=== PATIENT | male | born 1965 | race Caucasian/White ===

== ENCOUNTER 2022-10-06 18:01 | Inpatient (IN) ==
[2022-10-06] MEDS ORDERED: CEROVITE ADV FORMULA TAB PO STA (18:27)
[2022-10-06] MEDS ORDERED: THIAMINE HCL 100 MG, FOLIC ACID 1 MG in SODIUM CHLORIDE 0.9% 1000ML 1,000 ML IV STA (18:27)
--- NOTE | 2022-10-06 18:27 | Emergency Department Note ---
Impression & Plan Alcohol withdrawal syndrome, ETOH abuse, Alcoholic hepatitis, Pancytopenia ED Provider Note NAME: SHAZIA MARIE AGE: 56 SEX: M : 1965 ARRIVES VIA: Walk-In INFORMANT: Patient, ED PROVIDER(S): Len Crow MD CHIEF COMPLAINT: Alcohol intoxication, rehab MEDICAL DECISION MAKING: Patient presents secondary to alcohol intoxication and inability to go to rehab today due to concern for likely elevated blood alcohol level. IV was established and blood work is obtained. The patient was ordered IV Zofran and fluids. Alcohol obtained. Patient blood work does show an anion gap low bicarb and associated elevated alcohol just under 400. Given these concerns with associated vomiting I did speak with the on-call hospital service Dr. Agrawal and the patient was admitted to the medicine service. CIWA protocol was initiated. The patient was also ordered D5 half. The patient did require small amount of supplemental nasal cannula oxygen likely secondary to Ativan administration. Critical Care: I have personally spent 35 minutes of critical care time in direct management of this patient. This includes bedside care, interpretation of diagnostic studies, and testing, discussion with consultants, patient, and family members, and other require inpatient management activities. This 35 minutes is in excess of all separately billable procedures. Prior /Outside records reviewed: None Differential diagnosis: Alcohol intoxication, toxicologic, infection, hypoglycemia, electrolyte abnormalities, dehydration, transaminitis, hepatitis among others were considered Diagnostics, as interpreted by me: ECG: None Cardiac monitoring: An order was placed for continuous cardiac monitoring. The monitor shows a rate of 102 with tachycardic and regular rhythm. Patient was placed on pulse oximetry Medical decision rules: CIWA score Imaging studies: See below HPI: Patient presents due to concern for alcohol intoxication. The patient states that he is struggled with alcohol intoxication for many years and currently has been an alcoholic for the last several months after period of sobriety for several weeks. The patient denies any chest pains or shortness of breath and has no abdominal pain he does admit to drinking a pint of vodka which she drank through the light and finished this morning. He did try to go to [facility] but they referred him here as he was too intoxicated to be taken for inpatient treatment at their facility at this time. The patient denies any concomitant drug use. He does not have any abdominal pain but just has a nausea. He has had associated vomiting PAST MEDICAL HISTORY: See Below PAST SURGICAL HISTORY: See Below SOCIAL HISTORY: See Below HOME MEDICATIONS: See Below ALLERGIES: See Below VITALS: See Below PHYSICAL EXAMINATION: GENERAL: Clinically intoxicated but no apparent distress. Laying prone. EYE EXAM: Normal conjunctiva. PERRL, no anisocoria and EOM's grossly intact w/o pain. OROPHARYNX: Moist mucus membranes, grossly normal dentition. NECK: Supple, no nuchal rigidity, no adenopathy, non-tender. No signs of meningismus. FROM of the neck with good chin to chest and neck extension. No stridor. LUNGS: Clear to auscultation. Normal chest wall mechanics. HEART: Tachycardic and regular, no MRG. ABDOMEN: Abdomen soft, non-tender, no masses, no rebound or guarding. BACK: No CVA TTP. SKIN: No rashes and no bruising. UPPER EXTREMITIES: Upper extremities are grossly normal. LOWER EXTREMITIES: Grossly normal, no edema. NEURO EXAM: A&O x3, cranial nerves II-XII grossly intact, normal speech, moves all 4 extremities. 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 Beliefs That Will Affect Care: None Current Living Situation: Significant Other Other Information That Helps Us Care for You: No Feels Safe at Home: Yes Safety Concerns: Feels Safe At This Time Assistive Devices: None Allergies Allergies Allergy/AdvReac Type Severity Reaction Status Date / Time No Known Allergies Allergy Verified 10/06/22 23:31 Home Meds Home Medications Medication Instructions Recorded Confirmed folic acid 1 mg tablet 0 mg PO DAILY 10/06/22 10/06/22 lisinopril 2.5 mg tablet 0 mg PO DAILY 10/06/22 10/06/22 metoprolol succinate 25 mg 0 mg PO DAILY 10/06/22 10/06/22 tablet,extended release 24 hr multivitamin 1 tab PO DAILY 10/06/22 10/06/22 Results & Data (ED) Vital Signs Vital Signs - 24 hr 10/06/22 18:13 10/06/22 18:37 10/06/22 18:48 Temperature 36.6 C Temperature Source Temporal Artery Scan Pulse Rate 116 H 109 H Pulse Rate [Apical] Pulse Rate from SpO2 Sensor Respiratory Rate 20 Respiratory Effort / Characteristics Respiratory Depth Blood Pressure 136/91 Blood Pressure [Right Arm] Blood Pressure Mean 106 Blood Pressure Mean [Right Arm] Pulse Oximetry 94 95 Oxygen Delivery Method Room Air Room Air Oxygen Flow Rate Sepsis Recent Fever Within 48 Hours No Sepsis New/Unexplained Change in Mental Status N/A Sepsis Action Taken by Nursing No Action Required Oxygen Flow Rate - Titration Pulse Oximetry Post Tiitration 10/06/22 19:27 10/06/22 18:38 10/06/22 18:40 Temperature 36.9 C Temperature Source Oral Pulse Rate 112 H 108 H Pulse Rate [Apical] 105 H Pulse Rate from SpO2 Sensor 111 H 107 H Respiratory Rate 14 Respiratory Effort / Characteristics Non-Labored Spontaneous Respiratory Depth Normal Blood Pressure Blood Pressure [Right Arm] 136/91 Blood Pressure Mean Blood Pressure Mean [Right Arm] 106 Pulse Oximetry 96 91 93 Oxygen Delivery Method Room Air Oxygen Flow Rate Sepsis Recent Fever Within 48 Hours Sepsis New/Unexplained Change in Mental Status Sepsis Action Taken by Nursing Oxygen Flow Rate - Titration Pulse Oximetry Post Tiitration 10/06/22 18:50 10/06/22 18:59 10/06/22 19:21 Temperature Temperature Source Pulse Rate 95 H Pulse Rate [Apical] Pulse Rate from SpO2 Sensor 95 H 107 H 100 H Respiratory Rate Respiratory Effort / Characteristics Respiratory Depth Blood Pressure 136/91 Blood Pressure [Right Arm] Blood Pressure Mean 106 Blood Pressure Mean [Right Arm] Pulse Oximetry 93 90 96 Oxygen Delivery Method Oxygen Flow Rate Sepsis Recent Fever Within 48 Hours Sepsis New/Unexplained Change in Mental Status Sepsis Action Taken by Nursing Oxygen Flow Rate - Titration Pulse Oximetry Post Tiitration 10/06/22 19:29 10/06/22 19:30 10/06/22 19:40 Temperature Temperature Source Pulse Rate 104 H 97 H 106 H Pulse Rate [Apical] Pulse Rate from SpO2 Sensor 103 H 100 H 106 H Respiratory Rate 14 15 17 Respiratory Effort / Characteristics Respiratory Depth Blood Pressure 126/100 Blood Pressure [Right Arm] Blood Pressure Mean 108 Blood Pressure Mean [Right Arm] Pulse Oximetry 96 95 91 Oxygen Delivery Method Oxygen Flow Rate Sepsis Recent Fever Within 48 Hours Sepsis New/Unexplained Change in Mental Status Sepsis Action Taken by Nursing Oxygen Flow Rate - Titration Pulse Oximetry Post Tiitration 10/06/22 19:50 10/06/22 20:00 10/06/22 20:10 Temperature Temperature Source Pulse Rate 97 H 95 H 99 H Pulse Rate [Apical] Pulse Rate from SpO2 Sensor 98 H 96 H 100 H Respiratory Rate 18 13 21 Respiratory Effort / Characteristics Respiratory Depth Blood Pressure Blood Pressure [Right Arm] Blood Pressure Mean Blood Pressure Mean [Right Arm] Pulse Oximetry 92 93 94 Oxygen Delivery Method Oxygen Flow Rate Sepsis Recent Fever Within 48 Hours Sepsis New/Unexplained Change in Mental Status Sepsis Action Taken by Nursing Oxygen Flow Rate - Titration Pulse Oximetry Post Tiitration 10/06/22 20:20 10/06/22 20:27 10/06/22 20:30 Temperature Temperature Source Pulse Rate 106 H 99 H 107 H Pulse Rate [Apical] Pulse Rate from SpO2 Sensor 105 H 99 H 107 H Respiratory Rate 16 21 20 Respiratory Effort / Characteristics Respiratory Depth Blood Pressure 133/102 H 137/104 H Blood Pressure [Right Arm] Blood Pressure Mean 112 115 Blood Pressure Mean [Right Arm] Pulse Oximetry 89 L 91 99 Oxygen Delivery Method Oxygen Flow Rate Sepsis Recent Fever Within 48 Hours Sepsis New/Unexplained Change in Mental Status Sepsis Action Taken by Nursing Oxygen Flow Rate - Titration Pulse Oximetry Post Tiitration 10/06/22 20:40 10/06/22 20:50 10/06/22 21:00 Temperature Temperature Source Pulse Rate 97 H 103 H 99 H Pulse Rate [Apical] Pulse Rate from SpO2 Sensor 96 H 103 H 99 H Respiratory Rate 14 12 19 Respiratory Effort / Characteristics Respiratory Depth Blood Pressure 139/98 Blood Pressure [Right Arm] Blood Pressure Mean 111 Blood Pressure Mean [Right Arm] Pulse Oximetry 96 97 98 Oxygen Delivery Method Oxygen Flow Rate Sepsis Recent Fever Within 48 Hours Sepsis New/Unexplained Change in Mental Status Sepsis Action Taken by Nursing Oxygen Flow Rate - Titration Pulse Oximetry Post Tiitration 10/06/22 21:18 10/06/22 21:10 10/06/22 21:20 Temperature Temperature Source Pulse Rate 95 H 96 H Pulse Rate [Apical] Pulse Rate from SpO2 Sensor 95 H 93 H Respiratory Rate 20 19 Respiratory Effort / Characteristics Respiratory Depth Blood Pressure Blood Pressure [Right Arm] Blood Pressure Mean Blood Pressure Mean [Right Arm] Pulse Oximetry 87 L 99 97 Oxygen Delivery Method Room Air Oxygen Flow Rate 0 Sepsis Recent Fever Within 48 Hours Sepsis New/Unexplained Change in Mental Status Sepsis Action Taken by Nursing Oxygen Flow Rate - Titration 2 Pulse Oximetry Post Tiitration 95 10/06/22 21:30 Temperature Temperature Source Pulse Rate 95 H Pulse Rate [Apical] Pulse Rate from SpO2 Sensor 95 H Respiratory Rate 20 Respiratory Effort / Characteristics Respiratory Depth Blood Pressure 123/90 Blood Pressure [Right Arm] Blood Pressure Mean 101 Blood Pressure Mean [Right Arm] Pulse Oximetry 96 Oxygen Delivery Method Oxygen Flow Rate Sepsis Recent Fever Within 48 Hours Sepsis New/Unexplained Change in Mental Status Sepsis Action Taken by Nursing Oxygen Flow Rate - Titration Pulse Oximetry Post Tiitration Home Medications Current Medication List: was personally reviewed by me Laboratory Data Attestation: I reviewed the patient's lab results. 10/06/22 22:31 10/06/22 19:15 Lab Results 10/06/22 10/06/22 10/06/22 Range/Units 19:15 19:15 19:15 WBC 2.11 L (4.8-10.8) K/ul RBC 3.70 L (4.70-6.10) M/uL Hgb 13.0 L (14.0-18.0) g/dl Hct 36.2 L (42.0-52.0) % MCV 97.8 (80.0-100.0) fL MCH 35.1 H (25.0-34.0) pg MCHC 35.9 (32.0-36.0) g/dL RDW Std Deviation 64.3 H (36.4-46.3) fL RDW Coeff of Tj 18.0 H (11.5-14.5) % Plt Count 60 L (130-400) K/uL MPV 11.6 (9.4-12.4) fL Neutrophils % (Manual) 42 % Lymphocytes % (Manual) 25 % Monocytes % (Manual) 14 % Basophils % (Manual) 5 % Neutrophils # (Manual) 0.89 L (1.40-6.50) K/uL Total Absolute Neuts 0.89 L* (1.4-6.5) K/uL Lymphocytes # (Manual) 0.53 L (1.2-3.4) K/uL Total Abs Lymphocytes 0.82 L (1.2-3.4) K/uL Monocytes # (Manual) 0.30 (0.11-0.59) K/uL Basophils # (Manual) 0.11 (0-0.2) K/uL Large Granular Lymphs 14 % # Lrg Granular Lymphs 0.30 K/uL PT (9.0-12.0) Seconds INR (0.9-1.1) Sodium 137 (136-145) mmol/L Potassium 3.7 (3.5-5.1) mmol/L Chloride 92 L (98-107) mmol/L Carbon Dioxide 16 L (21-32) mmol/L Anion Gap 29 H (3-11) BUN 17 (6-23) mg/dl Creatinine 0.74 (0.6-1.4) mg/dl Est Cr Clr Drug Dosing Not Reportable Est GFR ( Amer) 121.2 ml/min Est GFR (Non-Af Amer) 104.6 ml/min BUN/Creatinine Ratio 23.0 H (10-20) Glucose 71 (70-99(Fasting)) mg/dl Calcium 8.7 (8.6-10.3) mg/dl Phosphorus 5.5 H (2.5-4.9) mg/dl Magnesium 1.7 (1.7-2.4) mg/dl Total Bilirubin 2.3 H (0.2-1.0) mg/dl AST 318 H (13-39) U/L ALT 138 H (7-52) U/L Alkaline Phosphatase 99 (34-104) U/L Total Protein 7.9 (6.0-8.3) gm/dl Albumin 4.7 (3.4-5.0) gm/dl Globulin 3.2 (2.5-4.0) gm/dl Albumin/Globulin Ratio 1.5 (0.9-2) Lipase 69 (11-82) U/L Ethyl Alcohol mg/dL 393.5 H (<10.0) mg/dl 10/06/22 Range/Units 19:16 WBC (4.8-10.8) K/ul RBC (4.70-6.10) M/uL Hgb (14.0-18.0) g/dl Hct (42.0-52.0) % MCV (80.0-100.0) fL MCH (25.0-34.0) pg MCHC (32.0-36.0) g/dL RDW Std Deviation (36.4-46.3) fL RDW Coeff of Tj (11.5-14.5) % Plt Count (130-400) K/uL MPV (9.4-12.4) fL Neutrophils % (Manual) % Lymphocytes % (Manual) % Monocytes % (Manual) % Basophils % (Manual) % Neutrophils # (Manual) (1.40-6.50) K/uL Total Absolute Neuts (1.4-6.5) K/uL Lymphocytes # (Manual) (1.2-3.4) K/uL Total Abs Lymphocytes (1.2-3.4) K/uL Monocytes # (Manual) (0.11-0.59) K/uL Basophils # (Manual) (0-0.2) K/uL Large Granular Lymphs % # Lrg Granular Lymphs K/uL PT 10.7 (9.0-12.0) Seconds INR 1.0 (0.9-1.1) Sodium (136-145) mmol/L Potassium (3.5-5.1) mmol/L Chloride (98-107) mmol/L Carbon Dioxide (21-32) mmol/L Anion Gap (3-11) BUN (6-23) mg/dl Creatinine (0.6-1.4) mg/dl Est Cr Clr Drug Dosing Est GFR ( Amer) ml/min Est GFR (Non-Af Amer) ml/min BUN/Creatinine Ratio (10-20) Glucose (70-99(Fasting)) mg/dl Calcium (8.6-10.3) mg/dl Phosphorus (2.5-4.9) mg/dl Magnesium (1.7-2.4) mg/dl Total Bilirubin (0.2-1.0) mg/dl AST (13-39) U/L ALT (7-52) U/L Alkaline Phosphatase (34-104) U/L Total Protein (6.0-8.3) gm/dl Albumin (3.4-5.0) gm/dl Globulin (2.5-4.0) gm/dl Albumin/Globulin Ratio (0.9-2) Lipase (11-82) U/L Ethyl Alcohol mg/dL (<10.0) mg/dl Administered Medications Clonidine HCl (Clonidine Hcl 0.1 Mg Tab) 0.1 mg PO Q8H PRN PRN Reason: HypertensionSBP>180orDBP>100 Stop: 11/06/22 15:44 Last Admin: 10/09/22 13:27 Dose: 0.1 mg Documented By: Admin: 10/08/22 03:01 Dose: 0.1 mg Documented By: CANDI Folic Acid (Folic Acid 1 Mg Tab) [facility] [place] [place]: 11/06/22 08:59 Last Admin: 10/10/22 08:57 Dose: 1 mg Documented By: Admin: 10/09/22 07:55 Dose: 1 mg Documented By: Admin: 10/08/22 08:33 Dose: 1 mg Documented By: Admin: 10/07/22 08:54 Dose: 1 mg Documented By: NINO Lisinopril (Lisinopril 10 Mg Tab) 10 mg PO HS [facility] Stop: 11/08/22 20:59 Last Admin: 10/09/22 20:01 Dose: 10 mg Documented By: CANDI Lorazepam (Lorazepam 2 Mg/1 Ml Vial) 2 mg IV UD PRN; Protocol PRN Reason: EtOH Withdrawal AWSS Score 8,9 Stop: 11/05/22 19:40 Last Admin: 10/07/22 19:48 Dose: 2 mg Documented By: CANDI Lorazepam (Lorazepam 2 Mg/1 Ml Vial) 1 mg IV UD PRN; Protocol PRN Reason: EtOH Withdrawal AWSS Score 6,7 Stop: 11/05/22 19:40 Last Admin: 10/09/22 12:36 Dose: 1 mg Documented By: Admin: 10/07/22 22:56 Dose: 1 mg Documented By: Admin: 10/07/22 20:50 Dose: 1 mg Documented By: Admin: 10/07/22 16:23 Dose: 1 mg Documented By: MARISOL Lorazepam (Lorazepam 0.5 Mg Tab) 0.5 mg PO Q8H PRN PRN Reason: Anxiety Stop: 11/07/22 08:19 Last Admin: 10/10/22 09:00 Dose: 0.5 mg Documented By: Admin: 10/09/22 23:26 Dose: 0.5 mg Documented By: Admin: 10/08/22 19:49 Dose: 0.5 mg Documented By: Admin: 10/08/22 11:40 Dose: 0.5 mg Documented By: KEENAN Metoprolol Tartrate (Metoprolol Tartrate 25 Mg Tab) 25 mg PO BID [facility] Stop: 11/07/22 08:59 Last Admin: 10/10/22 08:56 Dose: 25 mg Documented By: Admin: 10/09/22 20:00 Dose: 25 mg Documented By: Admin: 10/09/22 07:56 Dose: 25 mg Documented By: Admin: 10/08/22 21:45 Dose: 25 mg Documented By: Admin: 10/08/22 08:34 Dose: 25 mg Documented By: KEENAN Multivitamins (Multivitamin Tab) 1 tab PO QAM [facility] Stop: 11/06/22 08:59 Last Admin: 10/10/22 08:57 Dose: 1 tab Documented By: Admin: 10/09/22 07:55 Dose: 1 tab Documented By: Admin: 10/08/22 08:35 Dose: 1 tab Documented By: Admin: 10/07/22 08:54 Dose: 1 tab Documented By: NINO Pantoprazole Sodium (Pantoprazole 40 Mg Tab) 40 mg PO QAM [facility] Stop: 11/07/22 08:59 Last Admin: 10/10/22 08:57 Dose: 40 mg Documented By: Admin: 10/09/22 07:55 Dose: 40 mg Documented By: Admin: 10/08/22 08:33 Dose: 40 mg Documented By: KEENAN Sucralfate (Sucralfate 1 Gm/10 Ml Udc) 1 gm PO QID [facility] Stop: 11/06/22 16:59 Last Admin: 10/10/22 08:57 Dose: 1 gm Documented By: Admin: 10/09/22 20:01 Dose: 1 gm Documented By: Admin: 10/09/22 16:46 Dose: 1 gm Documented By: Admin: 10/09/22 12:07 Dose: 1 gm Documented By: Admin: 10/09/22 07:34 Dose: 1 gm Documented By: Admin: 10/08/22 21:46 Dose: 1 gm Documented By: Admin: 10/08/22 15:26 Dose: Not Given Documented By: Admin: 10/08/22 13:36 Dose: 1 gm Documented By: GPDarleen Admin: 10/08/22 08:33 Dose: 1 gm Documented By: Admin: 10/07/22 20:55 Dose: 1 gm Documented By: Admin: 10/07/22 16:23 Dose: 1 gm Documented By: MARISOL Thiamine HCl (Thiamine Hcl 100 Mg Tab) 100 mg PO QAM EDUIN Stop: 11/06/22 08:59 Last Admin: 10/10/22 08:56 Dose: 100 mg Documented By: Admin: 10/09/22 07:56 Dose: 100 mg Documented By: GPDarleen Admin: 10/08/22 08:33 Dose: 100 mg Documented By: Admin: 10/07/22 08:54 Dose: 100 mg Documented By: NINO Discontinued Medications Diazepam (Diazepam 2 Mg Tablet) 2 mg PO ONE ONE Stop: 10/07/22 08:14 Last Admin: 10/07/22 08:28 Dose: 2 mg Documented By: NINO Gabapentin (Gabapentin 600 Mg Tab) 1,200 mg PO NOW STA Stop: 10/06/22 20:49 Last Admin: 10/06/22 20:55 Dose: Not Given Documented By: OFELIA Gabapentin (Gabapentin 600 Mg Tab) 600 mg PO Q12H EDUIN Stop: 10/09/22 12:01 Last Admin: 10/09/22 11:33 Dose: 600 mg Documented By: Admin: 10/08/22 23:38 Dose: 600 mg Documented By: CANDI Gabapentin (Gabapentin 600 Mg Tab) 600 mg PO Q8H EDUIN Stop: 10/08/22 12:01 Last Admin: 10/08/22 11:33 Dose: 600 mg Documented By: Admin: 10/08/22 03:42 Dose: 600 mg Documented By: Admin: 10/07/22 19:52 Dose: 600 mg Documented By: CANDI Gabapentin (Gabapentin 600 Mg Tab) 600 mg PO Q6H EDUIN Stop: 10/07/22 12:01 Last Admin: 10/07/22 12:35 Dose: 600 mg Documented By: Admin: 10/07/22 05:44 Dose: 600 mg Documented By: CARMEN Gabapentin (Gabapentin 600 Mg Tab) 1,200 mg PO NOW ONE Stop: 10/06/22 21:59 Last Admin: 10/06/22 23:21 Dose: 1,200 mg Documented By: OFELIA Thiamine HCl 100 mg/ Folic (Acid 1 mg/ Sodium Chloride) 1,001.2 mls @ 500 mls/hr IV .Q2H1M STA; Protocol Stop: 10/06/22 20:27 Last Infusion: 10/06/22 22:04 Dose: 0 mls/hr Documented By: Admin: 10/06/22 19:35 Dose: 500 mls/hr Documented By: OFELIA Sodium Chloride (Nss 1000ml) 1,000 mls @ 999 mls/hr IV .Q1H1M ONE Stop: 10/06/22 21:31 Last Infusion: 10/06/22 22:04 Dose: 0 mls/hr Documented By: Admin: 10/06/22 20:54 Dose: 999 mls/hr Documented By: OFELIA Magnesium Sulfate/Dextrose (Magnesium Sulfate / D5w) 1 gm in 100 mls @ 50 mls/hr IV Q2H [facility] Stop: 10/07/22 00:59 Last Infusion: 10/07/22 02:34 Dose: 0 mls/hr Documented By: Admin: 10/07/22 00:39 Dose: 50 mls/hr Documented By: Infusion: 10/07/22 00:30 Dose: 50 mls/hr Documented By: Admin: 10/06/22 22:30 Dose: 50 mls/hr Documented By: OFELIA Lactated Ringer's (Lr) 1,000 mls @ 200 mls/hr IV .Q5H ONE Stop: 10/07/22 01:41 Last Admin: 10/06/22 21:59 Dose: Not Given Documented By: OFELIA Pantoprazole Sodium 80 mg/ (Dextrose) 120 mls @ 480 mls/hr IV ONE STA Stop: 10/06/22 21:32 Last Infusion: 10/06/22 22:32 Dose: 0 mls/hr Documented By: Admin: 10/06/22 22:02 Dose: 480 mls/hr Documented By: OFELIA Dextrose/Lactated Ringer's (D5w And Lactated Ringers) 1,000 mls @ 80 mls/hr IV .[id number] ONE Stop: 10/07/22 10:23 Last Infusion: 10/07/22 11:17 Dose: 0 mls/hr Documented By: Admin: 10/06/22 22:47 Dose: 80 mls/hr Documented By: OFELIA Pantoprazole Sodium 40 mg/ (Dextrose) 100 mls @ 20 mls/hr IV Q5H EDUIN Stop: 11/06/22 00:29 Last Infusion: 10/07/22 15:10 Dose: 0 mg/hr, 0 mls/hr Documented By: Admin: 10/07/22 12:19 Dose: 8 mg/hr, 20 mls/hr Documented By: Infusion: 10/07/22 11:21 Dose: 8 mg/hr, 20 mls/hr Documented By: Admin: 10/07/22 06:21 Dose: 8 mg/hr, 20 mls/hr Documented By: Infusion: 10/07/22 06:21 Dose: 8 mg/hr, 20 mls/hr Documented By: Admin: 10/07/22 02:38 Dose: 8 mg/hr, 20 mls/hr Documented By: GH Dextrose/Lactated Ringer's (D5w And Lactated Ringers) 1,000 mls @ 50 mls/hr IV .Q20H EDUIN Stop: 11/06/22 10:59 Last Infusion: 10/07/22 19:30 Dose: 0 mls/hr Documented By: Infusion: 10/07/22 16:15 Dose: 50 mls/hr Documented By: Admin: 10/07/22 12:18 Dose: 80 mls/hr Documented By: DAA Octreotide Acetate 50 mcg/ (Syringe) 10 mls @ 3 mls/min IV TODAY@0830 ONE Stop: 10/07/22 08:33 Last Admin: 10/07/22 08:53 Dose: 3 mls/min Documented By: DAA Octreotide Acetate 500 mcg/ (Dextrose) 100.5 mls @ 10.05 mls/hr IV .Q10H EDUIN Stop: 11/06/22 09:14 Last Infusion: 10/07/22 15:10 Dose: 0 mcg/hr, 0 mls/hr Documented By: Admin: 10/07/22 09:17 Dose: 50 mcg/hr, 10.1 mls/hr Documented By: NINO Magnesium Sulfate/Dextrose (Magnesium Sulfate / D5w) 1 gm in 100 mls @ 50 mls/hr IV ONE ONE Stop: 10/08/22 10:17 Last Infusion: 10/08/22 10:25 Dose: 0 mls/hr Documented By: Admin: 10/08/22 08:33 Dose: 50 mls/hr Documented By: GPF Lactated Ringer's (Lr) 1,000 mls @ 100 mls/hr IV .Q10H ONE Stop: 10/10/22 07:28 Last Infusion: 10/10/22 08:04 Dose: 0 mls/hr Documented By: Infusion: 10/09/22 23:20 Dose: 100 mls/hr Documented By: Infusion: 10/09/22 22:04 Dose: 100 mls/hr Documented By: Infusion: 10/09/22 21:58 Dose: 100 mls/hr Documented By: Infusion: 10/09/22 21:45 Dose: 0 mls/hr Documented By: Admin: 10/09/22 21:39 Dose: 100 mls/hr Documented By: ESG Magnesium Sulfate/Dextrose (Magnesium Sulfate / D5w) 1 gm in 100 mls @ 50 mls/hr IV Q2H EDUIN Stop: 10/10/22 04:59 Last Infusion: 10/10/22 06:53 Dose: 0 mls/hr Documented By: Admin: 10/10/22 04:38 Dose: 50 mls/hr Documented By: Infusion: 10/10/22 04:38 Dose: 50 mls/hr Documented By: Admin: 10/10/22 02:57 Dose: 50 mls/hr Documented By: ESG Ioversol (Optiray 320 100ml) 100 ml IV ONCE ONE Stop: 10/07/22 00:00 Last Admin: 10/06/22 23:59 Dose: 93 ml Documented By: ESTHER Ketamine HCl (Ketamine 50 Mg/5 Ml Syringe) Confirm Administered Dose 50 mg .ROUTE .STK-MED ONE Stop: 10/07/22 14:08 Last Admin: 10/07/22 15:10 Dose: Not Given Documented By: NINO Lidocaine HCl (Lidocaine 2% 2 Ml Vial/Amp(20mg/Ml)) Confirm Administered Dose 4 ml INFIL .STK-MED ONE Stop: 10/07/22 14:07 Last Admin: 10/07/22 15:10 Dose: Not Given Documented By: NINO Lisinopril (Lisinopril 5 Mg Tab) 5 mg PO HS EDUIN Stop: 11/06/22 22:54 Last Admin: 10/08/22 21:45 Dose: 5 mg Documented By: Admin: 10/07/22 23:08 Dose: 5 mg Documented By: CANDI Lorazepam (Lorazepam 2 Mg/1 Ml Vial) 1 mg IV ONE PRN; Protocol PRN Reason: EtoH Withdrawal AWSS 6,7,8,9,10 Last Admin: 10/06/22 19:57 Dose: 1 mg Documented By: OFELIA Metoclopramide HCl (Metoclopramide Hcl Inj 5 Mg/Ml 2 Ml Vial) 10 mg IV NOW STA Stop: 10/06/22 21:19 Last Admin: 10/06/22 22:10 Dose: 10 mg Documented By: OFELIA Metoprolol Tartrate (Metoprolol Tartrate 25 Mg Tab) 12.5 mg PO BID EDUIN Stop: 11/05/22 22:14 Last Admin: 10/07/22 20:55 Dose: 12.5 mg Documented By: Admin: 10/07/22 09:16 Dose: 12.5 mg Documented By: Admin: 10/06/22 23:21 Dose: 12.5 mg Documented By: OFELIA Metoprolol Tartrate (Metoprolol Tartrate 25 Mg Tab) 12.5 mg PO NOW STA Stop: 10/07/22 22:52 Last Admin: 10/07/22 23:07 Dose: 12.5 mg Documented By: CANDI Multivitamins/Minerals (Cerovite Adv Formula Tab) 1 tab PO ONE STA Stop: 10/06/22 18:28 Last Admin: 10/06/22 18:39 Dose: Not Given Documented By: MARIA R Ondansetron HCl (Ondansetron Inj 2 Mg/Ml 2 Ml Vial) 4 mg IV NOW STA Stop: 10/06/22 19:45 Last Admin: 10/06/22 19:56 Dose: 4 mg Documented By: OFELIA Potassium Chloride (Potassium Chloride Crtab 20 Meq Tabcr) 40 meq PO ONE ONE Stop: 10/08/22 08:19 Last Admin: 10/08/22 08:33 Dose: 40 meq Documented By: KEENAN Propofol (Propofol Iv Emulsion 10 Mg/Ml 20 Ml Vial) Confirm Administered Dose 200 mg IV .STK-MED ONE Stop: 10/07/22 14:07 Last Admin: 10/07/22 15:10 Dose: Not Given Documented By: DABianca Discharge Plan Visit Data Chief Complaint: Alcohol Withdrawal Stated Complaint: ALCOHOL WITHDRAWAL ED Provider: Len Crow Discharge Problem: Alcohol withdrawal syndrome, ETOH abuse, Alcoholic hepatitis, Pancytopenia Patient Disposition: Admitted As Inpatient Discharge Instructions Interventions: ED Discharge Assessment Last Done: 10/06/22 23:31
[2022-10-06] MEDS ORDERED: Ativan IV Alcohol Withdrawal--Active Protocol IV PRN (19:41)
[2022-10-06] MEDS ORDERED: LORazepam 2 MG/1 ML VIAL IV PRN ×3 (19:41)
[2022-10-06] MEDS ORDERED: ONDANSETRON INJ 2 MG/ML 2 ML VIAL IV STA (19:44)
[2022-10-06 19:48] LABS: Alanine Aminotransferase 138 U/L (7-52); Albumin Globulin Ratio 1.5 (0.9-2); Albumin Level 4.7 gm/dl (3.4-5.0); Alkaline Phosphatase 99 U/L (34-104); Anion Gap 29 (3-11); Aspartate Aminotransferase 318 U/L (13-39); Bilirubin,Total 2.3 mg/dl (0.2-1.0); Blood Urea Nitrogen 17 mg/dl (6-23); Calcium 8.7 mg/dl (8.6-10.3); Carbon Dioxide 16 mmol/L (21-32); Chloride 92 mmol/L (98-107); Est GFR (African American) 121.2 ml/min; Est GFR (Non-African American) 104.6 ml/min; Globulin 3.2 gm/dl (2.5-4.0); Glucose 71 mg/dl (70-99(Fasting)); Magnesium 1.7 mg/dl (1.7-2.4); Phosphorus 5.5 mg/dl (2.5-4.9); Potassium 3.7 mmol/L (3.5-5.1); Sodium 137 mmol/L (136-145); Total Protein 7.9 gm/dl (6.0-8.3)
[2022-10-06 19:59] LABS: Hematocrit (blood only) 36.2 % (42.0-52.0); Mean Corpuscular Hemoglobin 35.1 pg (25.0-34.0); Mean Corpuscular Hgb Conc 35.9 g/dL (32.0-36.0); Mean Corpuscular Volume 97.8 fL (80.0-100.0); Mean Platelet Volume 11.6 fL (9.4-12.4); Platelet Count 60 K/uL (130-400); RDW Standard Deviation 64.3 fL (36.4-46.3); White Blood Count 2.11 K/ul (4.8-10.8)
[2022-10-06] MEDS ORDERED: SODIUM CHLORIDE 0.9% 1000ML 1,000 ML IV ONE (20:31)
[2022-10-06] MEDS ORDERED: LACTATED RINGER'S 1,000 ML IV ONE (20:42)
[2022-10-06 20:43] LABS: ALC (manual) 0.82 K/uL (1.2-3.4); ANC (manual) 0.89 K/uL (1.4-6.5); Basophils # (manual) 0.11 K/uL (0-0.2); Basophils % (manual) 5 %; Large Granular Lymph % (manual) 14 %; Lymphocytes # (manual) 0.53 K/uL (1.2-3.4); Lymphocytes % (manual) 25 %; Monocytes % (manual) 14 %; Neutrophils # (manual) 0.89 K/uL (1.40-6.50); Neutrophils % (manual) 42 %
[2022-10-06] MEDS ORDERED: D5W AND 1/2NSS 1,000 ML IV SCH (20:45)
[2022-10-06] MEDS ORDERED: GABAPENTIN 600 MG TAB PO STA (20:48)
[2022-10-06] MEDS ORDERED: METOCLOPRAMIDE HCL INJ 5 MG/ML 2 ML VIAL IV STA (21:18)
[2022-10-06] MEDS ORDERED: PANTOprazole 80 MG in DEXTROSE 5% 100 ML IV STA (21:18)
[2022-10-06 21:27] LABS: Lipase 69 U/L (11-82)
--- NOTE | 2022-10-06 21:31 | History & Physical Report ---
Date of Service October 06, 2022 Assessment & Plan (1) Acute hypoxemic respiratory failure: Plan: Likely post IV Ativan administration at the ER Recurrent UGIB hx GERD in the setting of alcohol abuse Alcohol withdrawal Alcoholic hepatitis, hepatic steatosis on imaging, good prognosis with negative computed Maddreys DF score Pancytopenia likely secondary to alcohol abuse, patient unaware of previous issues HTN, stable mood disorder, patient denies suicidality, not on maintenance medications past tobacco abuse PCU Supplemental O2 Baseline ABG IV PPI GI consult Re: Recurrent UGIB N.p.o. until patient seen by GI in anticipation of repeat endoscopy if warranted Retrieve records of recent confinement at [facility] in [facility] Follow H&H, patient currently refusing prospective blood transfusion ADELA S, DT precautions Retrieve patient medication list from PCP's office. (Patient unsure of doses of current home medications (metoprolol, lisinopril, Protonix, thiamine, multivitamin, folic acid). Patient home meds unfortunately left behind at [facility] along with his luggage. Staff currently unable to access patient's medications.) DVT prophylaxis. SCDs Re: GI bleed Full code Text document was generated using Bloggerce voice recognition software. It may contain grammatical or spelling errors. Kindly contact undersigned for clarification of any documentation item in question. History of Present Illness Chief Complaint: high alcohol levels Primary Care Provider: Dr. Billy from [place], [place] History obtained from patient and records. Medical history significant for HTN, GERD, recent GI bleed, mood disorder, alcohol abuse, past tobacco abuse. Patient is a resident of [place], [place] who was supposed to check in at the local [facility] for voluntary EtOH rehab today. Recent confinement 2 months ago at [facility] for GI bleed and alcohol withdrawal. No prior history of alcohol withdrawal seizures/intubation for alcohol withdrawal. Recalls upper endoscopic procedure being done with unrecalled findings. 3 days ago, patient noted achy lower abdominal pain. No constipation/diarrhea symptoms. Subsequent nausea, dark emesis and hiccuping which patient attributes to decreased EtOH intake. Patient denies headache, chest pain, SOB, cough symptoms. Patient noted to be intoxicated upon arrival at the addiction facility today. Blood alcohol levels noted to be very high. Patient directed to ER for evaluation. Coffee-ground emesis noted to be heme positive. O2 sats 87 on room air post IV Ativan administration at the ER. Medical History as above Surgical History : None Family History : Alcoholism Personal/Social history : Past tobacco abuse, ongoing alcohol abuse, prior work as a pharmaceutical rep Allergies Allergy/AdvReac Type Severity Reaction Status Date / Time No Known Allergies Allergy Verified 10/06/22 23:31 Home Medications Medication Instructions Recorded Confirmed Type folic acid 1 mg tablet 0 mg PO DAILY 10/06/22 10/06/22 History lisinopril 2.5 mg tablet 0 mg PO DAILY 10/06/22 10/06/22 History metoprolol succinate 25 mg 0 mg PO DAILY 10/06/22 10/06/22 History tablet,extended release 24 hr multivitamin 1 tab PO DAILY 10/06/22 10/06/22 History Past Med/Surg History Social History Smoking Status: Never smoker Hx Alcohol Use: Yes Hx Substance Use: No Preferred Language: [place] Communication Ability: Effective Division Manager Required: No Beliefs That Will Affect Care: None Current Living Situation: Significant Other Other Information That Helps Us Care for You: No Feels Safe at Home: Yes Safety Concerns: Feels Safe At This Time Assistive Devices: None Review of Systems Review of Systems: As per HPI, all other systems reviewed and negative Physical Exam Physical Exam: GENERAL: uncomfortable, tremulous, episodic hiccuping, no respiratory distress SKIN: Pallor, warm HEENT: Pale palpebral conjunctivae, no ptosis, dry buccal mucosa NECK : Supple, no tenderness CHEST : CTA, no tenderness HEART : RRR, no obvious murmurs ABDOMEN: Some distention, central abdominal tenderness EXTREMITIES : No LE swelling/tenderness, no other conspicuous deformities noted NEUROLOGIC : Coherent, no facial asymmetry,, tremulous, no other gross focality Results & Data Results & Data Vital Signs (Past 12 Hours) Vital Signs Temp Pulse Pulse Resp BP BP Pulse Ox 10/06/22 21:10 95 H 20 99 10/06/22 21:18 87 L 10/06/22 21:00 99 H 19 139/98 98 10/06/22 20:50 103 H 12 97 10/06/22 20:40 97 H 14 96 10/06/22 20:30 107 H 20 137/104 H 99 10/06/22 20:27 99 H 21 133/102 H 91 10/06/22 20:20 106 H 16 89 L 10/06/22 20:10 99 H 21 94 10/06/22 20:00 95 H 13 93 10/06/22 19:50 97 H 18 92 10/06/22 19:40 106 H 17 91 10/06/22 19:30 97 H 15 126/100 95 10/06/22 19:29 104 H 14 96 10/06/22 19:21 136/91 96 10/06/22 18:59 90 10/06/22 18:50 95 H 93 10/06/22 18:40 108 H 93 10/06/22 18:38 112 H 91 10/06/22 19:27 36.9 C 105 H 14 136/91 96 10/06/22 18:48 109 H 10/06/22 18:37 95 10/06/22 18:13 36.6 C 116 H 20 136/91 94 O2 Del Method O2 Flow Rate 10/06/22 21:10 10/06/22 21:18 Room Air 0 10/06/22 21:00 10/06/22 20:50 10/06/22 20:40 10/06/22 20:30 10/06/22 20:27 10/06/22 20:20 10/06/22 20:10 10/06/22 20:00 10/06/22 19:50 10/06/22 19:40 10/06/22 19:30 10/06/22 19:29 10/06/22 19:21 10/06/22 18:59 10/06/22 18:50 10/06/22 18:40 10/06/22 18:38 10/06/22 19:27 Room Air 10/06/22 18:48 10/06/22 18:37 Room Air 10/06/22 18:13 Room Air Laboratory Results Laboratory Results WBC 2.11 K/ul (4.8-10.8) L 10/06/22 19:15 RBC 3.70 M/uL (4.70-6.10) L 10/06/22 19:15 Hgb 13.0 g/dl (14.0-18.0) L 10/06/22 19:15 Hct 36.2 % (42.0-52.0) L 10/06/22 19:15 MCV 97.8 fL (80.0-100.0) 10/06/22 19:15 MCH 35.1 pg (25.0-34.0) H 10/06/22 19:15 MCHC 35.9 g/dL (32.0-36.0) 10/06/22 19:15 RDW Std Deviation 64.3 fL (36.4-46.3) H 10/06/22 19:15 RDW Coeff of Tj 18.0 % (11.5-14.5) H 10/06/22 19:15 Plt Count 60 K/uL (130-400) L 10/06/22 19:15 MPV 11.6 fL (9.4-12.4) 10/06/22 19:15 Neutrophils % (Manual) 42 % 10/06/22 19:15 Lymphocytes % (Manual) 25 % 10/06/22 19:15 Monocytes % (Manual) 14 % 10/06/22 19:15 Basophils % (Manual) 5 % 10/06/22 19:15 Neutrophils # (Manual) 0.89 K/uL (1.40-6.50) L 10/06/22 19:15 Total Absolute Neuts 0.89 K/uL (1.4-6.5) L* 10/06/22 19:15 Lymphocytes # (Manual) 0.53 K/uL (1.2-3.4) L 10/06/22 19:15 Total Abs Lymphocytes 0.82 K/uL (1.2-3.4) L 10/06/22 19:15 Monocytes # (Manual) 0.30 K/uL (0.11-0.59) 10/06/22 19:15 Basophils # (Manual) 0.11 K/uL (0-0.2) 10/06/22 19:15 Large Granular Lymphs 14 % 10/06/22 19:15 # Lrg Granular Lymphs 0.30 K/uL 10/06/22 19:15 Sodium 137 mmol/L (136-145) 10/06/22 19:15 Potassium 3.7 mmol/L (3.5-5.1) 10/06/22 19:15 Chloride 92 mmol/L (98-107) L 10/06/22 19:15 Carbon Dioxide 16 mmol/L (21-32) L 10/06/22 19:15 Anion Gap 29 (3-11) H 10/06/22 19:15 BUN 17 mg/dl (6-23) 10/06/22 19:15 Creatinine 0.74 mg/dl (0.6-1.4) 10/06/22 19:15 Est Cr Clr Drug Dosing Not Reportable 10/06/22 19:15 Est GFR ( Amer) 121.2 ml/min 10/06/22 19:15 Est GFR (Non-Af Amer) 104.6 ml/min 10/06/22 19:15 BUN/Creatinine Ratio 23.0 (10-20) H 10/06/22 19:15 Glucose 71 mg/dl (70-99(Fasting)) 10/06/22 19:15 Calcium 8.7 mg/dl (8.6-10.3) 10/06/22 19:15 Phosphorus 5.5 mg/dl (2.5-4.9) H 10/06/22 19:15 Magnesium 1.7 mg/dl (1.7-2.4) 10/06/22 19:15 Total Bilirubin 2.3 mg/dl (0.2-1.0) H 10/06/22 19:15 AST 318 U/L (13-39) H 10/06/22 19:15 ALT 138 U/L (7-52) H 10/06/22 19:15 Alkaline Phosphatase 99 U/L (34-104) 10/06/22 19:15 Total Protein 7.9 gm/dl (6.0-8.3) 10/06/22 19:15 Albumin 4.7 gm/dl (3.4-5.0) 10/06/22 19:15 Globulin 3.2 gm/dl (2.5-4.0) 10/06/22 19:15 Albumin/Globulin Ratio 1.5 (0.9-2) 10/06/22 19:15 Lipase 69 U/L (11-82) 10/06/22 19:15 Ethyl Alcohol mg/dL 393.5 mg/dl (<10.0) H 10/06/22 19:15 CT abdomen pelvis: Severe hepatic steatosis. Diagnostic Findings Chest x-ray as per my interpretation atelectasis
[2022-10-06] MEDS ORDERED: ACETAMINOPHEN 500 MG TAB PO PRN (21:34)
[2022-10-06] MEDS ORDERED: PROMETHAZINE HCL 12.5 MG in SODIUM CHLORIDE 0.9% 50 ML IV PRN (21:34)
[2022-10-06] MEDS ORDERED: oxyCODONE HCL IR 5 MG TAB (IMMEDIATE RELEASE) PO PRN (21:34)
[2022-10-06] MEDS ORDERED: D5W AND LACTATED RINGERS 1,000 ML IV ONE (21:54)
[2022-10-06] MEDS ORDERED: GABAPENTIN 1200MG ALCOHOL WITHDRAWAL LOAD PO STA (21:58)
[2022-10-06] MEDS ORDERED: GABAPENTIN 600 MG TAB PO ONE (21:58)
[2022-10-06 22:08] LABS: Prothrombin Time 10.7 Seconds (9.0-12.0)
[2022-10-06] MEDS: MAGNESIUM SULFATE / D5W 1 GM/100 ML BAG IV SCH (22:30)
[2022-10-06 23:07] LABS: Base Excess ABG -8.6 mEq/L (-9-1.8); HCO3 ABG 17 mmol/L (19-24); Oxygen Saturation ABG 99.4 % (90-95); PCO2 ABG 33 mmHg (35-46); PO2 ABG 127 mmHg (80-95); pH ABG 7.31 (7.35-7.45)
[2022-10-06 23:11] LABS: Allen Test Pos (Pos)
[2022-10-06 23:19] LABS: Hematocrit (blood only) 32.9 % (42.0-52.0); Hemoglobin 11.5 g/dl (14.0-18.0)
[2022-10-06] MEDS: METOPROLOL TARTRATE 25 MG TAB PO SCH (23:21)
[2022-10-06] MEDS ORDERED: OPTIRAY 320 100ml IV ONE (23:59)
--- NOTE | 2022-10-07 00:15 | CT Scan Report ---
Exam(s): CT ABDOMEN + PELVIS With Contrast IV Amt: 93 ML OPTIRAY 320 EXAM: CT Abdomen and Pelvis With Intravenous Contrast CLINICAL HISTORY: Reason for exam: abd pain, ugib. TECHNIQUE: Axial computed tomography images of the abdomen and pelvis with intravenous contrast. CTDI is 24.25 mGy and DLP is 1353.05 mGy-cm. Automated exposure control was utilized for the study. A dose lowering technique was utilized adhering to the principles of ALARA. CONTRAST: Patient received 93 ML OPTIRAY 320 of IV contrast COMPARISON: No relevant prior studies available. FINDINGS: ABDOMEN: Liver: Severe hepatic steatosis. Gallbladder and bile ducts: Unremarkable. Pancreas: Unremarkable. Spleen: Unremarkable. Adrenals: Unremarkable. Kidneys and ureters: Unremarkable. No obstructing stones. No hydronephrosis. Stomach and bowel: Unremarkable. PELVIS: Appendix: No findings to suggest acute appendicitis. Bladder: Unremarkable. Reproductive: Unremarkable as visualized. ABDOMEN and PELVIS: Intraperitoneal space: Unremarkable. No free air. No significant fluid collection. Bones/joints: No acute fracture. Soft tissues: Unremarkable. Vasculature: Unremarkable. Lymph nodes: Unremarkable. IMPRESSION: Severe hepatic steatosis. Electronically signed by: Redd Fitch MD 10/07/22 00:14 AM
[2022-10-07] MEDS: MAGNESIUM SULFATE / D5W 1 GM/100 ML BAG IV SCH (00:39)
[2022-10-07] MEDS: PANTOprazole 40 MG in DEXTROSE 5% 100 ML IV SCH ×3 (02:38→12:19)
[2022-10-07 05:27] LABS: Appearance Urine Clear (Clear); Bacteria Urine Automated Negative (Negative); Blood Urine Negative (Negative); Color Urine Dark Yellow; Glucose Urine UA Negative (Negative); Ketones Urine 3+ (Negative); Leukocyte Esterase Urine Negative (Negative); Nitrite Urine Negative (Negative); Protein Urine 2+ (Negative); RBC Urine Automated 0-4 /hpf (0-4); Specific Gravity Urine > 1.045 (1.000-1.030); Urobilinogen Urine Negative (Negative); WBC Urine Automated 0 /hpf (0-5); pH Urine 5.5 (4.5-7.5)
[2022-10-07 05:37] LABS: Bilirubin Urine 1+ (Negative)
[2022-10-07] MEDS: GABAPENTIN 600 MG TAB PO SCH ×3 (05:44→19:52)
[2022-10-07 06:12] LABS: Amphetamines+Metham, Urine Neg (Neg); Barbiturates, Urine Neg (Neg); Benzodiazepine, Urine Pos (Neg); Cocaine, Urine Neg (Neg); MDMA (Ecstacy), Urine Neg (Neg); Methadone, Urine Neg (Neg); Opiate, Urine Neg (Neg); Phencyclidine, Urine Neg (Neg)
[2022-10-07 06:35] LABS: Albumin Globulin Ratio 1.5 (0.9-2); Albumin Level 3.9 gm/dl (3.4-5.0); BUN Creatinine Ratio 18.5 (10-20); Bilirubin,Total 1.8 mg/dl (0.2-1.0); Calcium 8.1 mg/dl (8.6-10.3); Creatinine Clr Calc Pharmacy 138.4 ml/min; Est GFR (African American) 127.8 ml/min; Est GFR (Non-African American) 110.3 ml/min; Globulin 2.6 gm/dl (2.5-4.0); Total Protein 6.5 gm/dl (6.0-8.3)
[2022-10-07 07:13] LABS: Basophils # (auto) 0.05 K/uL (0-0.2); Basophils % (auto) 1.8 %; Eosinophils # (auto) 0.02 K/uL (0-0.50); Eosinophils % (auto) 0.7 %; Hematocrit (blood only) 31.6 % (42.0-52.0); Hemoglobin 11.4 g/dl (14.0-18.0); Immature Granulocytes # (auto) 0.03 K/uL (0.01-0.20); Immature Granulocytes % (auto) 1.1 %; Lymphocytes # (auto) 0.78 K/uL (1.2-3.4); Lymphocytes % (auto) 27.6 %; Mean Corpuscular Hemoglobin 35.1 pg (25.0-34.0); Mean Corpuscular Hgb Conc 36.1 g/dL (32.0-36.0); Mean Corpuscular Volume 97.2 fL (80.0-100.0); Mean Platelet Volume 11.9 fL (9.4-12.4); Monocytes # (auto) 0.34 K/uL (0.11-0.59); Neutrophils # (auto) 1.61 K/uL (1.40-6.50); Neutrophils % (auto) 56.8 %; Platelet Count 48 K/uL (130-400); RDW Coefficient of Variation 17.8 % (11.5-14.5); RDW Standard Deviation 62.7 fL (36.4-46.3); Red Blood Count 3.25 M/uL (4.70-6.10); White Blood Count 2.83 K/ul (4.8-10.8)
--- NOTE | 2022-10-07 07:28 | XRay Report ---
SINGLE VIEW CHEST CLINICAL HISTORY: Hypoxia. FINDINGS: An AP, portable, upright chest radiograph is obtained. No prior studies are available for c omparison at the time of dictation. The cardiomediastinal silhouette is top normal for projection. Th e lungs and pleural spaces are clear noting mild bibasilar atelectasis. No pneumothorax is seen. The bony thorax is grossly intact. Degenerative change is noted in the spine. IMPRESSION: No active disease in the chest. ACT 112: Negative or not required by law. Electronically signed by: Joshua Hodges M.D. 10/07/2022 7:27 AM
[2022-10-07] MEDS ORDERED: diazePAM 2 MG TABLET PO ONE (08:13)
[2022-10-07] MEDS ORDERED: OCTREOTIDE ACETATE 50 MCG in SYRINGE 9.5 ML IV ONE (08:30)
--- NOTE | 2022-10-07 08:36 | Gastrointestinal Consultation ---
Date of Consultation October 07, 2022 Assessment & Plan (1) Coffee ground emesis: Plan 56 year old reside of [place] in [place] to attend ETOH rehab admitted from rehab facility check in for ETOH intoxication and coffee ground emesis yesterday. He has remained hemodynamically stable without BUN elevation. However, given his history of ETOh abuse, severe fatty liver and thrombocytopenia will plan for EGD to rule out GI bleeding. DDX discussed: esophagitis, PUD, gastritis, MWT, portal hypertensive gastropathy, variceal vs other NPO Continue IV PPI bolus and drip Start octreotide bolus and drip EGD today No NSAIDs Importance of ETOH cessation discussed Trend H&H Monitor and document GI output Transfuse PRN We appreciate assistance in the management of any serological abnormality and corrections to include: hemoglobin >7, INR <2, platelets >50,000, potassium levels >3.5 but <5.3, and sodium levels within 5 points of the reference range prior to endoscopic evaluation. Thank you for allowing us to participate in the care of this patient. Please call with any acute changes, questions or concerns. Please see addendum below with additional recommendation from my supervising physician. Supervising Physician Co-Signing Physician Notes I saw and evaluated the patient. The patient has a history of alcohol abuse and presented to the emergency room intoxicated. There was a question of coffee- ground emesis thus upper endoscopy has been requested by the internal medicine service for further evaluation the patient notes that he is interested in alcohol rehabilitation but is not yet certain if he wants to go through a formal treatment plan. Physical examination Patient tremulous, obese Spider nevi noted Impression: Patient with a history of alcohol abuse presenting with coffee- ground emesis we will proceed with upper endoscopy today to ensure that he does not have bleeding from his portal hypertension. We did discuss risks and benefits which include bleeding infection perforation pain and need for follow- up studies. We did discuss the increased risk of the procedure given his evolving alcohol withdrawal. History of Present Illness Reason for Consultation: coffee ground emesis Requesting Physician: Levi Attending Physician: Elijah Sims MD History of Present Illness 56 year old male with history of HTN, GERD, recent GI bleed, mood disorder, alcohol abuse, past tobacco abuse admitted from [facility] prior to check in for ETOH intoxication, coffee ground emesis. Of note, he resides in [place], [place]. Pt was seen and evaluated, chart reviewed. He is a poor historian. Suggests a pint of vodka use daily. Has been drinking this way for years. Last use was yesterday sometime. Notes that after he drinks like this he often gets nausea/vomiting. Yesterday he reported dark black emesis and coffee ground appearing "specks" in vomit. Did not see any BRB. No report of black/bloody stools. No fever, chills, CP, SOB. Hgb 13 --> 11.4 BUN 12 INR 1 Plt 48 Tbili 1., AST 233, ALT 109, ALKP 76 Lipase 69 CTAP 2022: Severe hepatic steatosis. Allergies Allergy/AdvReac Type Severity Reaction Status Date / Time No Known Allergies Allergy Verified 10/06/22 23:31 Home Medications Medication Instructions Recorded Confirmed Type folic acid 1 mg tablet 0 mg PO DAILY 10/06/22 10/06/22 History lisinopril 2.5 mg tablet 0 mg PO DAILY 10/06/22 10/06/22 History metoprolol succinate 25 mg 0 mg PO DAILY 10/06/22 10/06/22 History tablet,extended release 24 hr multivitamin 1 tab PO DAILY 10/06/22 10/06/22 History Patient History Medical History (Updated 10/07/22 @ 12:16 by Renan Vega MD) Alcoholic hepatitis ETOH abuse Hypertension Pancytopenia Surgical History (Updated 10/07/22 @ 12:15 by Renan Vega MD) Surgical history unknown Social History Smoking Status: Never smoker Hx Alcohol Use: Yes Hx Substance Use: No Preferred Language: Mauritanian Communication Ability: Effective Living Coach Required: No Beliefs That Will Affect Care: None Current Living Situation: Significant Other Other Information That Helps Us Care for You: No Feels Safe at Home: Yes Safety Concerns: Feels Safe At This Time Assistive Devices: None Review of Systems Review of Systems: All systems reviewed & are unremarkable except as noted in HPI & below Physical Exam Constitutional: Disheveled appearing male i no acute distress Respiratory: normal respiratory effort, lungs clear to auscultation Cardiovascular: Rate/Rhythm: regular rate and regular rhythm Gastrointestinal (Abdomen): normal bowel sounds, soft, nontender, no hepatosplenomegaly Skin: no rashes, warm and dry Results & Data Vital Signs (Past 12 Hours) Vital Signs Temp Pulse Pulse Resp BP BP Pulse Ox 10/07/22 07:31 36.7 C 85 18 146/98 H 97 10/07/22 07:35 88 10/07/22 03:17 36.7 C 88 18 118/79 96 10/07/22 00:07 85 10/07/22 00:15 36.6 C 89 20 139/84 99 10/06/22 23:31 10/06/22 23:21 20 141/106 H 10/06/22 23:20 102 H 24 96 10/06/22 23:10 95 H 20 96 10/06/22 23:00 136/103 H 10/06/22 22:50 93 H 18 96 10/06/22 22:40 98 H 21 97 10/06/22 22:30 95 H 19 97 10/06/22 22:20 98 H 16 99 10/06/22 22:10 90 18 144/103 H 98 10/06/22 22:01 90 14 100 10/06/22 22:00 91 H 18 99 10/06/22 21:50 88 15 99 10/06/22 21:40 96 H 19 96 10/06/22 21:30 95 H 20 123/90 96 10/06/22 21:20 96 H 19 97 10/06/22 22:32 95 H 10/06/22 21:10 95 H 20 99 10/06/22 21:18 87 L 10/06/22 21:00 99 H 19 139/98 98 10/06/22 20:50 103 H 12 97 10/06/22 20:40 97 H 14 96 O2 Del Method O2 Flow Rate 10/07/22 07:31 Room Air 10/07/22 07:35 10/07/22 03:17 Room Air 10/07/22 00:07 10/07/22 00:15 Room Air 10/06/22 23:31 Room Air 10/06/22 23:21 10/06/22 23:20 10/06/22 23:10 10/06/22 23:00 10/06/22 22:50 10/06/22 22:40 10/06/22 22:30 10/06/22 22:20 10/06/22 22:10 10/06/22 22:01 10/06/22 22:00 10/06/22 21:50 10/06/22 21:40 10/06/22 21:30 10/06/22 21:20 10/06/22 22:32 10/06/22 21:10 10/06/22 21:18 Room Air 0 10/06/22 21:00 10/06/22 20:50 10/06/22 20:40 Laboratory Results 10/07/22 10/07/22 10/07/22 Range/Units Unknown Unknown Unknown WBC (4.8-10.8) K/ul RBC (4.70-6.10) M/uL Hgb (14.0-18.0) g/dl Hct (42.0-52.0) % MCV (80.0-100.0) fL MCH (25.0-34.0) pg MCHC (32.0-36.0) g/dL RDW Std Deviation (36.4-46.3) fL RDW Coeff of Tj (11.5-14.5) % Plt Count (130-400) K/uL MPV (9.4-12.4) fL Immature Gran % (Auto) % Neut % (Auto) % Lymph % (Auto) % [place] % (Auto) % Eos % (Auto) % Baso % (Auto) % Neut # (Auto) (1.40-6.50) K/uL Lymph # (Auto) (1.2-3.4) K/uL [place] # (Auto) (0.11-0.59) K/uL Eos # (Auto) (0-0.50) K/uL Baso # (Auto) (0-0.2) K/uL Immature Gran # (Auto) (0.01-0.20) K/uL Neutrophils % (Manual) % Lymphocytes % (Manual) % Monocytes % (Manual) % Basophils % (Manual) % Neutrophils # (Manual) (1.40-6.50) K/uL Total Absolute Neuts (1.4-6.5) K/uL Lymphocytes # (Manual) (1.2-3.4) K/uL Total Abs Lymphocytes (1.2-3.4) K/uL Monocytes # (Manual) (0.11-0.59) K/uL Basophils # (Manual) (0-0.2) K/uL Large Granular Lymphs % # Lrg Granular Lymphs K/uL PT (9.0-12.0) Seconds INR (0.9-1.1) ABG pH (7.35-7.45) ABG pCO2 (35-46) mmHg ABG pO2 (80-95) mmHg ABG HCO3 (19-24) mmol/L ABG O2 Saturation (90-95) % ABG Base Excess (-9-1.8) mEq/L Kush Test (Pos) Oxygen Given Sodium (136-145) mmol/L Potassium (3.5-5.1) mmol/L Chloride (98-107) mmol/L Carbon Dioxide (21-32) mmol/L Anion Gap (3-11) BUN (6-23) mg/dl Creatinine (0.6-1.4) mg/dl Est Cr Clr Drug Dosing Est GFR ( Amer) ml/min Est GFR (Non-Af Amer) ml/min BUN/Creatinine Ratio (10-20) Glucose (70-99(Fasting)) mg/dl POC Glucose (70-99) mg/dl Calcium (8.6-10.3) mg/dl Phosphorus (2.5-4.9) mg/dl Magnesium (1.7-2.4) mg/dl Total Bilirubin (0.2-1.0) mg/dl AST (13-39) U/L ALT (7-52) U/L Alkaline Phosphatase (34-104) U/L Total Protein (6.0-8.3) gm/dl Albumin (3.4-5.0) gm/dl Globulin (2.5-4.0) gm/dl Albumin/Globulin Ratio (0.9-2) Lipase (11-82) U/L Urine Color Dark Yellow Urine Appearance Clear (Clear) Urine pH 5.5 (4.5-7.5) Ur Specific [place] > 1.045 H (1.000-1.030) Urine Protein 2+ H (Negative) Urine Glucose (UA) Negative (Negative) Urine Ketones 3+ H (Negative) Urine Blood Negative (Negative) Urine Nitrite Negative (Negative) Urine Bilirubin 1+ H (Negative) Urine Urobilinogen Negative (Negative) Ur Leukocyte Esterase Negative (Negative) Urine WBC (Auto) 0 (0-5) /hpf Urine RBC (Auto) 0-4 (0-4) /hpf U Hyaline Cast (Auto) 1-5 (0-5) /lpf U Epithel Cells (Auto) 5-10 H (0-5) /lpf Urine Bacteria (Auto) Negative (Negative) Urine Opiates Screen Neg (Neg) Ur Methadone, Qual Neg (Neg) Urine Barbiturates Neg (Neg) Ur Phencyclidine (PCP) Neg (Neg) U Amphetamin/Meth Scrn Neg (Neg) MDMA (Ecstasy) Screen Neg (Neg) U OH-Alprazolam Confrm Pending U Benzodiazepines Scrn Pos H (Neg) 7-Amino Clonazepam Pending Ur Nordiazepam Confirm Pending U OH-ethylflurazepam Pending U Lorazepam Cnf GC/MS Pending U Oxazepam Confm GC/MS Pending Ur Temazepam Confirm Pending U OH-Triazolam Confirm Pending U OH-Midazolam Confirm Pending Ur Cocaine Metabolite Neg (Neg) U Marijuana (THC) Screen Pos H (Neg) U Marijuana THC Carboxy Pending Drug Screen Comment Pending Ethyl Alcohol mg/dL (<10.0) mg/dl Blood Type Antibody Screen 10/07/22 10/07/22 10/07/22 Range/Units 08:07 05:38 05:38 WBC 2.83 L (4.8-10.8) K/ul RBC 3.25 L (4.70-6.10) M/uL Hgb 11.4 L (14.0-18.0) g/dl Hct 31.6 L (42.0-52.0) % MCV 97.2 (80.0-100.0) fL MCH 35.1 H (25.0-34.0) pg MCHC 36.1 H (32.0-36.0) g/dL RDW Std Deviation 62.7 H (36.4-46.3) fL RDW Coeff of Tj 17.8 H (11.5-14.5) % Plt Count 48 L (130-400) K/uL MPV 11.9 (9.4-12.4) fL Immature Gran % (Auto) 1.1 % Neut % (Auto) 56.8 % Lymph % (Auto) 27.6 % [place] % (Auto) 12.0 % Eos % (Auto) 0.7 % Baso % (Auto) 1.8 % Neut # (Auto) 1.61 (1.40-6.50) K/uL Lymph # (Auto) 0.78 L (1.2-3.4) K/uL [place] # (Auto) 0.34 (0.11-0.59) K/uL Eos # (Auto) 0.02 (0-0.50) K/uL Baso # (Auto) 0.05 (0-0.2) K/uL Immature Gran # (Auto) 0.03 (0.01-0.20) K/uL Neutrophils % (Manual) % Lymphocytes % (Manual) % Monocytes % (Manual) % Basophils % (Manual) % Neutrophils # (Manual) (1.40-6.50) K/uL Total Absolute Neuts (1.4-6.5) K/uL Lymphocytes # (Manual) (1.2-3.4) K/uL Total Abs Lymphocytes (1.2-3.4) K/uL Monocytes # (Manual) (0.11-0.59) K/uL Basophils # (Manual) (0-0.2) K/uL Large Granular Lymphs % # Lrg Granular Lymphs K/uL PT (9.0-12.0) Seconds INR (0.9-1.1) ABG pH (7.35-7.45) ABG pCO2 (35-46) mmHg ABG pO2 (80-95) mmHg ABG HCO3 (19-24) mmol/L ABG O2 Saturation (90-95) % ABG Base Excess (-9-1.8) mEq/L Kush Test (Pos) Oxygen Given Sodium 136 (136-145) mmol/L Potassium 4.0 (3.5-5.1) mmol/L Chloride 97 L (98-107) mmol/L Carbon Dioxide 22 (21-32) mmol/L Anion Gap 17 H (3-11) BUN 12 (6-23) mg/dl Creatinine 0.65 (0.6-1.4) mg/dl Est Cr Clr Drug Dosing 138.4 Est GFR ( Amer) 127.8 ml/min Est GFR (Non-Af Amer) 110.3 ml/min BUN/Creatinine Ratio 18.5 (10-20) Glucose 93 (70-99(Fasting)) mg/dl POC Glucose 90 (70-99) mg/dl Calcium 8.1 L (8.6-10.3) mg/dl Phosphorus (2.5-4.9) mg/dl Magnesium (1.7-2.4) mg/dl Total Bilirubin 1.8 H (0.2-1.0) mg/dl AST 233 H (13-39) U/L ALT 109 H (7-52) U/L Alkaline Phosphatase 76 (34-104) U/L Total Protein 6.5 (6.0-8.3) gm/dl Albumin 3.9 (3.4-5.0) gm/dl Globulin 2.6 (2.5-4.0) gm/dl Albumin/Globulin Ratio 1.5 (0.9-2) Lipase (11-82) U/L Urine Color Urine Appearance (Clear) Urine pH (4.5-7.5) Ur Specific [place] (1.000-1.030) Urine Protein (Negative) Urine Glucose (UA) (Negative) Urine Ketones (Negative) Urine Blood (Negative) Urine Nitrite (Negative) Urine Bilirubin (Negative) Urine Urobilinogen (Negative) Ur Leukocyte Esterase (Negative) Urine WBC (Auto) (0-5) /hpf Urine RBC (Auto) (0-4) /hpf U Hyaline Cast (Auto) (0-5) /lpf U Epithel Cells (Auto) (0-5) /lpf Urine Bacteria (Auto) (Negative) Urine Opiates Screen (Neg) Ur Methadone, Qual (Neg) Urine Barbiturates (Neg) Ur Phencyclidine (PCP) (Neg) U Amphetamin/Meth Scrn (Neg) MDMA (Ecstasy) Screen (Neg) U OH-Alprazolam Confrm U Benzodiazepines Scrn (Neg) 7-Amino Clonazepam Ur Nordiazepam Confirm U OH-ethylflurazepam U Lorazepam Cnf GC/MS U Oxazepam Confm GC/MS Ur Temazepam Confirm U OH-Triazolam Confirm U OH-Midazolam Confirm Ur Cocaine Metabolite (Neg) U Marijuana (THC) Screen (Neg) U Marijuana THC Carboxy Drug Screen Comment Ethyl Alcohol mg/dL (<10.0) mg/dl Blood Type Antibody Screen 10/06/22 10/06/22 10/06/22 Range/Units 22:31 22:31 22:31 WBC (4.8-10.8) K/ul RBC (4.70-6.10) M/uL Hgb 11.5 L (14.0-18.0) g/dl Hct 32.9 L (42.0-52.0) % MCV (80.0-100.0) fL MCH (25.0-34.0) pg MCHC (32.0-36.0) g/dL RDW Std Deviation (36.4-46.3) fL RDW Coeff of Tj (11.5-14.5) % Plt Count (130-400) K/uL MPV (9.4-12.4) fL Immature Gran % (Auto) % Neut % (Auto) % Lymph % (Auto) % [place] % (Auto) % Eos % (Auto) % Baso % (Auto) % Neut # (Auto) (1.40-6.50) K/uL Lymph # (Auto) (1.2-3.4) K/uL [place] # (Auto) (0.11-0.59) K/uL Eos # (Auto) (0-0.50) K/uL Baso # (Auto) (0-0.2) K/uL Immature Gran # (Auto) (0.01-0.20) K/uL Neutrophils % (Manual) % Lymphocytes % (Manual) % Monocytes % (Manual) % Basophils % (Manual) % Neutrophils # (Manual) (1.40-6.50) K/uL Total Absolute Neuts (1.4-6.5) K/uL Lymphocytes # (Manual) (1.2-3.4) K/uL Total Abs Lymphocytes (1.2-3.4) K/uL Monocytes # (Manual) (0.11-0.59) K/uL Basophils # (Manual) (0-0.2) K/uL Large Granular Lymphs % # Lrg Granular Lymphs K/uL PT (9.0-12.0) Seconds INR (0.9-1.1) ABG pH 7.31 L (7.35-7.45) ABG pCO2 33 L (35-46) mmHg ABG pO2 127 H (80-95) mmHg ABG HCO3 17 L (19-24) mmol/L ABG O2 Saturation 99.4 H (90-95) % ABG Base Excess -8.6 (-9-1.8) mEq/L Kush Test Pos (Pos) Oxygen Given 2 Sodium (136-145) mmol/L Potassium (3.5-5.1) mmol/L Chloride (98-107) mmol/L Carbon Dioxide (21-32) mmol/L Anion Gap (3-11) BUN (6-23) mg/dl Creatinine (0.6-1.4) mg/dl Est Cr Clr Drug Dosing Est GFR ( Amer) ml/min Est GFR (Non-Af Amer) ml/min BUN/Creatinine Ratio (10-20) Glucose (70-99(Fasting)) mg/dl POC Glucose (70-99) mg/dl Calcium (8.6-10.3) mg/dl Phosphorus (2.5-4.9) mg/dl Magnesium (1.7-2.4) mg/dl Total Bilirubin (0.2-1.0) mg/dl AST (13-39) U/L ALT (7-52) U/L Alkaline Phosphatase (34-104) U/L Total Protein (6.0-8.3) gm/dl Albumin (3.4-5.0) gm/dl Globulin (2.5-4.0) gm/dl Albumin/Globulin Ratio (0.9-2) Lipase (11-82) U/L Urine Color Urine Appearance (Clear) Urine pH (4.5-7.5) Ur Specific [place] (1.000-1.030) Urine Protein (Negative) Urine Glucose (UA) (Negative) Urine Ketones (Negative) Urine Blood (Negative) Urine Nitrite (Negative) Urine Bilirubin (Negative) Urine Urobilinogen (Negative) Ur Leukocyte Esterase (Negative) Urine WBC (Auto) (0-5) /hpf Urine RBC (Auto) (0-4) /hpf U Hyaline Cast (Auto) (0-5) /lpf U Epithel Cells (Auto) (0-5) /lpf Urine Bacteria (Auto) (Negative) Urine Opiates Screen (Neg) Ur Methadone, Qual (Neg) Urine Barbiturates (Neg) Ur Phencyclidine (PCP) (Neg) U Amphetamin/Meth Scrn (Neg) MDMA (Ecstasy) Screen (Neg) U OH-Alprazolam Confrm U Benzodiazepines Scrn (Neg) 7-Amino Clonazepam Ur Nordiazepam Confirm U OH-ethylflurazepam U Lorazepam Cnf GC/MS U Oxazepam Confm GC/MS Ur Temazepam Confirm U OH-Triazolam Confirm U OH-Midazolam Confirm Ur Cocaine Metabolite (Neg) U Marijuana (THC) Screen (Neg) U Marijuana THC Carboxy Drug Screen Comment Ethyl Alcohol mg/dL (<10.0) mg/dl Blood Type O Positive Antibody Screen NEGATIVE 10/06/22 10/06/22 10/06/22 Range/Units 19:16 19:15 19:15 WBC (4.8-10.8) K/ul RBC (4.70-6.10) M/uL Hgb (14.0-18.0) g/dl Hct (42.0-52.0) % MCV (80.0-100.0) fL MCH (25.0-34.0) pg MCHC (32.0-36.0) g/dL RDW Std Deviation (36.4-46.3) fL RDW Coeff of Tj (11.5-14.5) % Plt Count (130-400) K/uL MPV (9.4-12.4) fL Immature Gran % (Auto) % Neut % (Auto) % Lymph % (Auto) % [place] % (Auto) % Eos % (Auto) % Baso % (Auto) % Neut # (Auto) (1.40-6.50) K/uL Lymph # (Auto) (1.2-3.4) K/uL [place] # (Auto) (0.11-0.59) K/uL Eos # (Auto) (0-0.50) K/uL Baso # (Auto) (0-0.2) K/uL Immature Gran # (Auto) (0.01-0.20) K/uL Neutrophils % (Manual) % Lymphocytes % (Manual) % Monocytes % (Manual) % Basophils % (Manual) % Neutrophils # (Manual) (1.40-6.50) K/uL Total Absolute Neuts (1.4-6.5) K/uL Lymphocytes # (Manual) (1.2-3.4) K/uL Total Abs Lymphocytes (1.2-3.4) K/uL Monocytes # (Manual) (0.11-0.59) K/uL Basophils # (Manual) (0-0.2) K/uL Large Granular Lymphs % # Lrg Granular Lymphs K/uL PT 10.7 (9.0-12.0) Seconds INR 1.0 (0.9-1.1) ABG pH (7.35-7.45) ABG pCO2 (35-46) mmHg ABG pO2 (80-95) mmHg ABG HCO3 (19-24) mmol/L ABG O2 Saturation (90-95) % ABG Base Excess (-9-1.8) mEq/L Kush Test (Pos) Oxygen Given Sodium 137 (136-145) mmol/L Potassium 3.7 (3.5-5.1) mmol/L Chloride 92 L (98-107) mmol/L Carbon Dioxide 16 L (21-32) mmol/L Anion Gap 29 H (3-11) BUN 17 (6-23) mg/dl Creatinine 0.74 (0.6-1.4) mg/dl Est Cr Clr Drug Dosing Not Reportable Est GFR ( Amer) 121.2 ml/min Est GFR (Non-Af Amer) 104.6 ml/min BUN/Creatinine Ratio 23.0 H (10-20) Glucose 71 (70-99(Fasting)) mg/dl POC Glucose (70-99) mg/dl Calcium 8.7 (8.6-10.3) mg/dl Phosphorus 5.5 H (2.5-4.9) mg/dl Magnesium 1.7 (1.7-2.4) mg/dl Total Bilirubin 2.3 H (0.2-1.0) mg/dl AST 318 H (13-39) U/L ALT 138 H (7-52) U/L Alkaline Phosphatase 99 (34-104) U/L Total Protein 7.9 (6.0-8.3) gm/dl Albumin 4.7 (3.4-5.0) gm/dl Globulin 3.2 (2.5-4.0) gm/dl Albumin/Globulin Ratio 1.5 (0.9-2) Lipase 69 (11-82) U/L Urine Color Urine Appearance (Clear) Urine pH (4.5-7.5) Ur Specific [place] (1.000-1.030) Urine Protein (Negative) Urine Glucose (UA) (Negative) Urine Ketones (Negative) Urine Blood (Negative) Urine Nitrite (Negative) Urine Bilirubin (Negative) Urine Urobilinogen (Negative) Ur Leukocyte Esterase (Negative) Urine WBC (Auto) (0-5) /hpf Urine RBC (Auto) (0-4) /hpf U Hyaline Cast (Auto) (0-5) /lpf U Epithel Cells (Auto) (0-5) /lpf Urine Bacteria (Auto) (Negative) Urine Opiates Screen (Neg) Ur Methadone, Qual (Neg) Urine Barbiturates (Neg) Ur Phencyclidine (PCP) (Neg) U Amphetamin/Meth Scrn (Neg) MDMA (Ecstasy) Screen (Neg) U OH-Alprazolam Confrm U Benzodiazepines Scrn (Neg) 7-Amino Clonazepam Ur Nordiazepam Confirm U OH-ethylflurazepam U Lorazepam Cnf GC/MS U Oxazepam Confm GC/MS Ur Temazepam Confirm U OH-Triazolam Confirm U OH-Midazolam Confirm Ur Cocaine Metabolite (Neg) U Marijuana (THC) Screen (Neg) U Marijuana THC Carboxy Drug Screen Comment Ethyl Alcohol mg/dL 393.5 H (<10.0) mg/dl Blood Type Antibody Screen 10/06/22 Range/Units 19:15 WBC 2.11 L (4.8-10.8) K/ul RBC 3.70 L (4.70-6.10) M/uL Hgb 13.0 L (14.0-18.0) g/dl Hct 36.2 L (42.0-52.0) % MCV 97.8 (80.0-100.0) fL MCH 35.1 H (25.0-34.0) pg MCHC 35.9 (32.0-36.0) g/dL RDW Std Deviation 64.3 H (36.4-46.3) fL RDW Coeff of Tj 18.0 H (11.5-14.5) % Plt Count 60 L (130-400) K/uL MPV 11.6 (9.4-12.4) fL Immature Gran % (Auto) % Neut % (Auto) % Lymph % (Auto) % [place] % (Auto) % Eos % (Auto) % Baso % (Auto) % Neut # (Auto) (1.40-6.50) K/uL Lymph # (Auto) (1.2-3.4) K/uL [place] # (Auto) (0.11-0.59) K/uL Eos # (Auto) (0-0.50) K/uL Baso # (Auto) (0-0.2) K/uL Immature Gran # (Auto) (0.01-0.20) K/uL Neutrophils % (Manual) 42 % Lymphocytes % (Manual) 25 % Monocytes % (Manual) 14 % Basophils % (Manual) 5 % Neutrophils # (Manual) 0.89 L (1.40-6.50) K/uL Total Absolute Neuts 0.89 L* (1.4-6.5) K/uL Lymphocytes # (Manual) 0.53 L (1.2-3.4) K/uL Total Abs Lymphocytes 0.82 L (1.2-3.4) K/uL Monocytes # (Manual) 0.30 (0.11-0.59) K/uL Basophils # (Manual) 0.11 (0-0.2) K/uL Large Granular Lymphs 14 % # Lrg Granular Lymphs 0.30 K/uL PT (9.0-12.0) Seconds INR (0.9-1.1) ABG pH (7.35-7.45) ABG pCO2 (35-46) mmHg ABG pO2 (80-95) mmHg ABG HCO3 (19-24) mmol/L ABG O2 Saturation (90-95) % ABG Base Excess (-9-1.8) mEq/L Kush Test (Pos) Oxygen Given Sodium (136-145) mmol/L Potassium (3.5-5.1) mmol/L Chloride (98-107) mmol/L Carbon Dioxide (21-32) mmol/L Anion Gap (3-11) BUN (6-23) mg/dl Creatinine (0.6-1.4) mg/dl Est Cr Clr Drug Dosing Est GFR ( Amer) ml/min Est GFR (Non-Af Amer) ml/min BUN/Creatinine Ratio (10-20) Glucose (70-99(Fasting)) mg/dl POC Glucose (70-99) mg/dl Calcium (8.6-10.3) mg/dl Phosphorus (2.5-4.9) mg/dl Magnesium (1.7-2.4) mg/dl Total Bilirubin (0.2-1.0) mg/dl AST (13-39) U/L ALT (7-52) U/L Alkaline Phosphatase (34-104) U/L Total Protein (6.0-8.3) gm/dl Albumin (3.4-5.0) gm/dl Globulin (2.5-4.0) gm/dl Albumin/Globulin Ratio (0.9-2) Lipase (11-82) U/L Urine Color Urine Appearance (Clear) Urine pH (4.5-7.5) Ur Specific [place] (1.000-1.030) Urine Protein (Negative) Urine Glucose (UA) (Negative) Urine Ketones (Negative) Urine Blood (Negative) Urine Nitrite (Negative) Urine Bilirubin (Negative) Urine Urobilinogen (Negative) Ur Leukocyte Esterase (Negative) Urine WBC (Auto) (0-5) /hpf Urine RBC (Auto) (0-4) /hpf U Hyaline Cast (Auto) (0-5) /lpf U Epithel Cells (Auto) (0-5) /lpf Urine Bacteria (Auto) (Negative) Urine Opiates Screen (Neg) Ur Methadone, Qual (Neg) Urine Barbiturates (Neg) Ur Phencyclidine (PCP) (Neg) U Amphetamin/Meth Scrn (Neg) MDMA (Ecstasy) Screen (Neg) U OH-Alprazolam Confrm U Benzodiazepines Scrn (Neg) 7-Amino Clonazepam Ur Nordiazepam Confirm U OH-ethylflurazepam U Lorazepam Cnf GC/MS U Oxazepam Confm GC/MS Ur Temazepam Confirm U OH-Triazolam Confirm U OH-Midazolam Confirm Ur Cocaine Metabolite (Neg) U Marijuana (THC) Screen (Neg) U Marijuana THC Carboxy Drug Screen Comment Ethyl Alcohol mg/dL (<10.0) mg/dl Blood Type Antibody Screen
[2022-10-07] MEDS: MULTIVITAMIN TAB PO SCH (08:54)
[2022-10-07] MEDS: THIAMINE HCL 100 MG TAB PO SCH (08:54)
[2022-10-07] MEDS: FOLIC ACID 1 MG TAB PO SCH (08:54)
[2022-10-07] MEDS ORDERED: OCTREOTIDE ACETATE 500 MCG in DEXTROSE 5% 100 ML IV SCH (09:15)
[2022-10-07] MEDS: METOPROLOL TARTRATE 25 MG TAB PO SCH ×2 (09:16→20:55)
[2022-10-07] MEDS ORDERED: D5W AND LACTATED RINGERS 1,000 ML IV SCH (11:00)
--- NOTE | 2022-10-07 12:14 | Anesthesiology Consultation ---
Date of Service October 07, 2022 Assessment & Plan (1) Encounter for pre-operative examination: Chart Review Chart Review: Acceptable Risk for Surgery History Surgery Operation Date: 10/07/22 16:30 Proposed Procedures p Esophagogastroduodenoscopy Dr Andrzej Donnelly, Height/Weight Height: 5 ft 11 in Weight: 89.8 kg Allergies Allergy/AdvReac Type Severity Reaction Status Date / Time No Known Allergies Allergy Verified 10/06/22 23:31 Medications Home Medications Medication Instructions Recorded Confirmed Last Taken folic acid 1 mg tablet 0 mg PO DAILY 10/06/22 10/06/22 Unknown lisinopril 2.5 mg tablet 0 mg PO DAILY 10/06/22 10/06/22 Unknown metoprolol succinate 25 mg 0 mg PO DAILY 10/06/22 10/06/22 Unknown tablet,extended release 24 hr multivitamin 1 tab PO DAILY 10/06/22 10/06/22 Unknown Active Medications Generic Name Dose Route Start Last Admin Trade Name Freq PRN Reason Stop Dose Admin Folic Acid 1 mg 10/07/22 09:00 10/07/22 08:54 Folic Acid 1 Mg Tab PO 11/06/22 08:59 1 mg QAM EDUIN Administration Pantoprazole Sodium 40 mg/ 100 mls @ 20 mls/hr 10/07/22 01:45 10/07/22 06:21 Dextrose IV 11/06/22 00:29 8 mg/hr Q5H EDUIN 20 mls/hr Administration 8 MG/HR Octreotide Acetate 500 mcg/ 100.5 mls @ 10.05 mls/hr 10/07/22 09:15 10/07/22 09:17 Dextrose IV 11/06/22 09:14 50 mcg/hr .Q10H EDUIN 10.1 mls/hr Administration 50 MCG/HR Metoprolol Tartrate 12.5 mg 10/06/22 22:15 10/07/22 09:16 Metoprolol Tartrate 25 Mg Tab PO 11/05/22 22:14 12.5 mg BID EDUIN Administration Multivitamins 1 tab 10/07/22 09:00 10/07/22 08:54 Multivitamin Tab PO 11/06/22 08:59 1 tab QAM EDUIN Administration Thiamine HCl 100 mg 10/07/22 09:00 10/07/22 08:54 Thiamine Hcl 100 Mg Tab PO 11/06/22 08:59 100 mg QAM EDUIN Administration Past Medical History Medical History (Updated 10/07/22 @ 12:16 by Renan Vega MD) Alcoholic hepatitis ETOH abuse Hypertension Pancytopenia Past Surgical History Surgical History (Updated 10/07/22 @ 12:15 by Renan Vega MD) Surgical history unknown Social History Smoking Status: Never smoker Hx Alcohol Use: Yes Hx Substance Use: No Physical Exam Vital Signs Last Vital Signs Temp 36.9 C 10/07/22 10:55 Pulse 79 10/07/22 10:55 Resp 18 10/07/22 10:55 BP 143/91 H 10/07/22 10:55 Pulse Ox 97 10/07/22 10:55 O2 Del Method Room Air 10/07/22 10:55 O2 Flow Rate 0 10/06/22 21:18 Testing Laboratory Results 10/07/22 05:38 10/07/22 05:38 PT 10.7 Seconds (9.0-12.0) 10/06/22 19:16 INR 1.0 (0.9-1.1) 10/06/22 19:16 Urine Color Dark Yellow 10/07/22 Unknown Urine Appearance Clear (Clear) 10/07/22 Unknown Urine pH 5.5 (4.5-7.5) 10/07/22 Unknown Ur Specific [place] > 1.045 (1.000-1.030) H 10/07/22 Unknown Urine Protein 2+ (Negative) H 10/07/22 Unknown Urine Glucose (UA) Negative (Negative) 10/07/22 Unknown Urine Ketones 3+ (Negative) H 10/07/22 Unknown Urine Nitrite Negative (Negative) 10/07/22 Unknown Ur Leukocyte Esterase Negative (Negative) 10/07/22 Unknown Urine WBC (Auto) 0 /hpf (0-5) 10/07/22 Unknown Urine RBC (Auto) 0-4 /hpf (0-4) 10/07/22 Unknown U Hyaline Cast (Auto) 1-5 /lpf (0-5) 10/07/22 Unknown U Epithel Cells (Auto) 5-10 /lpf (0-5) H 10/07/22 Unknown Urine Bacteria (Auto) Negative (Negative) 10/07/22 Unknown Blood Type O Positive 10/06/22 22:31 Antibody Screen NEGATIVE 10/06/22 22:31 10/07/22 08:07 POC Glucose 90
[2022-10-07] MEDS ORDERED: ATROPINE SULFATE 0.1 MG/ML 10ML SYR IV PRN (13:55)
[2022-10-07] MEDS ORDERED: ePHEDrine sulfate 50 MG/ML AMP IV PRN (13:55)
[2022-10-07] MEDS ORDERED: fentaNYL citrate PF 100 MCG/2 ML VIAL IV PRN (13:55)
[2022-10-07] MEDS ORDERED: PROPOFOL IV EMULSION 10 MG/ML 20 ML VIAL IV ONE (14:06)
[2022-10-07] MEDS ORDERED: LIDOCAINE 2% 2 ML VIAL/AMP(20MG/ML) INFIL ONE (14:06)
[2022-10-07] MEDS ORDERED: KETAMINE 50 MG/5 ML SYRINGE ONE (14:07)
--- NOTE | 2022-10-07 14:17 | Communication Note ---
Date of Service: October 07, 2022 The patient underwent upper endoscopy this afternoon. He was found to have evidence of portal gastropathy in addition to several esophageal ulcers consis tent with recent band ligation. Recommendations Low-sodium diet Protonix 1 time daily Carafate slurry 4 times daily for 2 weeks Watch for signs of alcohol withdrawal Patient should follow-up with his regular GI provider as an outpatient Please call with any additional questions or concerns GI to sign off
--- NOTE | 2022-10-07 15:25 | GI REPORT ---
Patient Name: Palmer Griffin Procedure Date: 10/07/2022 1:22 PM Date of : 1965 Admit Type: Inpatient Age: 56 Gender: Male Attending MD: Malena Donnelly DO, Procedure: Upper GI endoscopy Providers: Malena Donnelly DO Referring MD: Elijah Sims Md Indications: Coffee-ground emesis Medicines: Monitored Anesthesia Care Complications: No immediate complications. Estimated blood loss: Minimal. Estimated Blood Loss: Estimated blood loss was minimal. Procedure: Pre-Anesthesia Assessment: - Prior to the procedure, a History and Physical was performed, and patient medications, allergies and sensitivities were reviewed. The patient's tolerance of previous anesthesia was reviewed. - The risks and benefits of the procedure and the sedation options and risks were discussed with the patient. All questions were answered and informed consent was obtained. - Patient identification and proposed procedure were verified prior to the procedure by the physician, the nurse and the engineering director. The procedure was verified in the procedure room. - Pre-procedure physical examination revealed no contraindications to sedation. - ASA Grade Assessment: IV - A patient with severe systemic disease that is a constant threat to life. - After reviewing the risks and benefits, the patient was deemed in satisfactory condition to undergo the procedure. - The anesthesia plan was to use monitored anesthesia care (MAC). - Immediately prior to administration of medications, the patient was re-assessed for adequacy to receive sedatives. - The heart rate, respiratory rate, oxygen saturations, blood pressure, adequacy of pulmonary ventilation, and response to care were monitored throughout the procedure. - The physical status of the patient was re-assessed after the procedure. After obtaining informed consent, the endoscope was passed under direct vision. Throughout the procedure, the patient's blood pressure, pulse, and oxygen saturations were monitored continuously. The Scope was introduced through the mouth, and advanced to the third part of duodenum. The upper GI endoscopy was accomplished without difficulty. The patient tolerated the procedure well. Findings: Few superficial esophageal ulcers with no bleeding and no stigmata of recent bleeding were found in the lower third of the esophagus. The largest lesion was 5 mm in largest dimension. Three columns of grade I varices with no bleeding and no stigmata of recent bleeding were found in the lower third of the esophagus. They were 3 mm in largest diameter. No red isidro signs were present. Stigmata of prior treatment were evident. Moderate portal hypertensive gastropathy was found in the entire examined stomach. The examined duodenum was normal. Impression: - Esophageal ulcers with no bleeding and no stigmata of recent bleeding. - Grade I esophageal varices with no bleeding and no stigmata of recent bleeding. Several healing ulcers were noted consistent with recent esophageal band ligation. - Portal hypertensive gastropathy. - Normal examined duodenum. - No specimens collected. Recommendation: - [facility]. - Full liquid diet today. - Use Protonix (pantoprazole) 40 mg PO daily. - Use sucralfate suspension 1 gram PO QID for 2 weeks. - No evidence of active or recent gastrointestinal bleeding. - Patient will need a follow-up upper endoscopy with his regular GI provider in 6 to 8 weeks to determine if further therapy of his esophageal varices is indicated - Consider use of a nonselective BB (Nadolol 20 mg 1 time daily) Malena Donnelly D.O. Malena Donnelly, 10/07/2022 3:24:27 PM This report has been signed electronically. Note Initiated On: 10/07/2022 1:22 PM Number of Addenda: 0 I attest to the content of the Intraoperative Record and orders documented therein, exceptions below {[id number]}
--- NOTE | 2022-10-07 15:42 | Anesthesiology Progress Note ---
Date of Service October 07, 2022 Anesthesia Post Procedure Vital Signs Vital Signs: Temp Pulse Pulse Pulse Resp BP BP 10/07/22 15:29 37.0 C 85 18 155/107 H 10/07/22 15:03 37.4 C 85 18 156/102 H 10/07/22 14:51 80 20 147/99 H 10/07/22 14:36 79 20 148/101 H 10/07/22 14:21 82 20 140/93 10/07/22 10:55 36.9 C 79 18 143/91 H 10/07/22 07:31 36.7 C 85 18 146/98 H 10/07/22 07:35 88 10/07/22 03:17 36.7 C 88 18 118/79 10/07/22 00:07 85 10/07/22 00:15 36.6 C 89 20 139/84 10/06/22 23:31 10/06/22 23:21 20 141/106 H 10/06/22 23:20 102 H 24 10/06/22 23:10 95 H 20 10/06/22 23:00 136/103 H 10/06/22 22:50 93 H 18 10/06/22 22:40 98 H 21 10/06/22 22:30 95 H 19 10/06/22 22:20 98 H 16 10/06/22 22:10 90 18 144/103 H 10/06/22 22:01 90 14 10/06/22 22:00 91 H 18 10/06/22 21:50 88 15 10/06/22 21:40 96 H 19 10/06/22 21:30 95 H 20 123/90 10/06/22 21:20 96 H 19 10/06/22 22:32 95 H 10/06/22 21:10 95 H 20 10/06/22 21:18 10/06/22 21:00 99 H 19 139/98 10/06/22 20:50 103 H 12 10/06/22 20:40 97 H 14 10/06/22 20:30 107 H 20 137/104 H 10/06/22 20:27 99 H 21 133/102 H 10/06/22 20:20 106 H 16 10/06/22 20:10 99 H 21 10/06/22 20:00 95 H 13 10/06/22 19:50 97 H 18 08/10/23 19:40 106 H 17 10/06/22 19:30 97 H 15 126/100 10/06/22 19:29 104 H 14 10/06/22 19:21 136/91 10/06/22 18:59 10/06/22 18:50 95 H 10/06/22 18:40 108 H 10/06/22 18:38 112 H 10/06/22 19:27 36.9 C 105 H 14 136/91 10/06/22 18:48 109 H 10/06/22 18:37 10/06/22 18:13 36.6 C 116 H 20 136/91 Pulse Ox O2 Del Method O2 Flow Rate 10/07/22 15:29 94 Room Air 10/07/22 15:03 96 Room Air 10/07/22 14:51 96 Room Air 10/07/22 14:36 96 Room Air 10/07/22 14:21 96 Room Air 10/07/22 10:55 97 Room Air 10/07/22 07:31 97 Room Air 10/07/22 07:35 10/07/22 03:17 96 Room Air 10/07/22 00:07 10/07/22 00:15 99 Room Air 10/06/22 23:31 Room Air 10/06/22 23:21 10/06/22 23:20 96 10/06/22 23:10 96 10/06/22 23:00 10/06/22 22:50 96 10/06/22 22:40 97 10/06/22 22:30 97 10/06/22 22:20 99 10/06/22 22:10 98 10/06/22 22:01 100 10/06/22 22:00 99 10/06/22 21:50 99 10/06/22 21:40 96 10/06/22 21:30 96 10/06/22 21:20 97 10/06/22 22:32 10/06/22 21:10 99 10/06/22 21:18 87 L Room Air 0 10/06/22 21:00 98 10/06/22 20:50 97 10/06/22 20:40 96 10/06/22 20:30 99 10/06/22 20:27 91 10/06/22 20:20 89 L 10/06/22 20:10 94 10/06/22 20:00 93 10/06/22 19:50 92 10/06/22 19:40 91 10/06/22 19:30 95 10/06/22 19:29 96 10/06/22 19:21 96 10/06/22 18:59 90 10/06/22 18:50 93 10/06/22 18:40 93 10/06/22 18:38 91 10/06/22 19:27 96 Room Air 10/06/22 18:48 10/06/22 18:37 95 Room Air 10/06/22 18:13 94 Room Air Transfer of Care Handoff Completed per policy Notes Mental Status: alert / awake / arousable and participated in evaluation Patient Amnestic to Procedure: Yes Nausea / Vomiting: adequately controlled Pain: adequately controlled Airway Patency, RR, SpO2: stable & adequate BP & HR: stable & adequate Hydration State: stable & adequate Anesthetic Complications: no major complications apparent
--- NOTE | 2022-10-07 15:47 | Hospitalist Progress Note ---
Date of Service October 07, 2022 Assessment & Plan (1) Acute hypoxemic respiratory failure: Plan: Hypoxia Transient likely secondary to IV sedative meds given in ED --CXR:No active disease in the chest. Saturating well currently on room air Recurrent Upper GI bleed: Likely due to esophageal ulcers, varices --CT ABD:Severe hepatic steatosis. --S/P EGD:Esophageal ulcers with no bleeding and no stigmata of recent bleeding. Grade I esophageal varices with no bleeding and no stigmata of recent bleeding. Several healing ulcers were noted consistent with recent esophageal band ligation. Portal hypertensive gastropathy. - Normal examined duodenum. No specimens collected. -- Monitor H&H and transfuse PRBCs as needed Appreciate GI input Continue Protonix Continue Carafate Avoid NSAIDs, anticoagulation Needs repeat EGD in 6 to 8 weeks Full liquid diet today Consider to add nadolol as able Alcohol withdrawal Alcohol use disorder Hepatic steatosis Monitor LFTs CT abdomen as above Avoid hepatotoxic agents as able Continue gabapentin protocol Ativan as needed Continue thiamine, folic acid Monitor for withdrawal Pancytopenia Likely secondary to alcohol abuse Monitor CBC HTN Obtain old records BP elevated likely due to alcohol withdrawal Resume home medications as able Clonidine as needed Monitor Mood disorder--not on any maintenance medications past tobacco abuse DVT Px: SCDs Re: GI bleed, thrombocytopenia CODE STATUS Full code Admission and Anticipated Discharge Date Admission Date: October 06, 2022 Subjective Patient is seen and examined at bedside States feeling anxious this morning during my encounter Also noted to have some tremor Denies any chest pain, dyspnea, dizziness, nausea, vomiting, abdominal pain No bleeding issues reported this morning Plan for EGD today Review of Systems Review of Systems: All systems reviewed & are unremarkable except as noted in Subjective Physical Exam Physical Exam: Physical Exam: Vitals signs as noted above General Appearance:Moderately built and nourished, no apparent distress Head: normocephalic, Atraumatic Eyes: normal inspection, EOMI Neck: supple, Trachea midline Respiratory/Chest: Normal breath sounds, CTA, No accessory muscle use Cardiovascular: S1, S2, No murmur Abdomen/GI:Soft, Non tender, Bowel sounds present Extremities/Musculoskeletal:normal inspection, no edema Neurologic/Psych:AAOX2, grossly no focal neurological deficits, +Tremor Skin: normal color, warm Results & Data Results & Data Vital Signs (Past 12 Hours) Vital Signs Temp Pulse Pulse Pulse Resp BP Pulse Ox 10/07/22 15:29 37.0 C 85 18 155/107 H 94 10/07/22 15:03 37.4 C 85 18 156/102 H 96 10/07/22 14:51 80 20 147/99 H 96 10/07/22 14:36 79 20 148/101 H 96 10/07/22 14:21 82 20 140/93 96 10/07/22 10:55 36.9 C 79 18 143/91 H 97 10/07/22 07:31 36.7 C 85 18 146/98 H 97 10/07/22 07:35 88 O2 Del Method 10/07/22 15:29 Room Air 10/07/22 15:03 Room Air 10/07/22 14:51 Room Air 10/07/22 14:36 Room Air 10/07/22 14:21 Room Air 10/07/22 10:55 Room Air 10/07/22 07:31 Room Air 10/07/22 07:35 Laboratory Results Short CBC 10/06/22 10/06/22 10/07/22 Range/Units 19:15 22:31 05:38 WBC 2.11 L 2.83 L (4.8-10.8) K/ul Hgb 13.0 L 11.5 L 11.4 L (14.0-18.0) g/dl Hct 36.2 L 32.9 L 31.6 L (42.0-52.0) % Plt Count 60 L 48 L (130-400) K/uL BMP 10/06/22 10/07/22 19:15 05:38 Sodium 137 136 Potassium 3.7 4.0 Chloride 92 L 97 L Carbon Dioxide 16 L 22 BUN 17 12 Creatinine 0.74 0.65 Glucose 71 93 Calcium 8.7 8.1 L Liver Function 10/06/22 10/07/22 Range/Units 19:15 05:38 Total Bilirubin 2.3 H 1.8 H (0.2-1.0) mg/dl AST 318 H 233 H (13-39) U/L ALT 138 H 109 H (7-52) U/L Alkaline Phosphatase 99 76 (34-104) U/L Albumin 4.7 3.9 (3.4-5.0) gm/dl Urine 10/07/22 Range/Units Unknown Urine Color Dark Yellow Urine Appearance Clear (Clear) Urine pH 5.5 (4.5-7.5) Ur Specific [place] > 1.045 H (1.000-1.030) Urine Protein 2+ H (Negative) Urine Glucose (UA) Negative (Negative)
[2022-10-07] MEDS: SUCRALFATE 1 GM/10 ML UDC PO SCH ×2 (16:23→20:55)
[2022-10-07] MEDS: LORazepam 2 MG/1 ML VIAL IV PRN ×3 (16:23→22:56)
[2022-10-07] MEDS ORDERED: METOPROLOL TARTRATE 25 MG TAB PO STA (22:51)
[2022-10-07] MEDS: lisinopril 5 MG TAB PO SCH (23:08)
[2022-10-08] MEDS: cloNIDine HCL 0.1 MG TAB PO PRN (03:01)
[2022-10-08] MEDS: GABAPENTIN 600 MG TAB PO SCH ×3 (03:42→23:38)
[2022-10-08 06:52] LABS: Hemoglobin 11.1 g/dl (14.0-18.0); Mean Corpuscular Hemoglobin 35.2 pg (25.0-34.0); Mean Corpuscular Hgb Conc 35.8 g/dL (32.0-36.0); Mean Corpuscular Volume 98.4 fL (80.0-100.0); Mean Platelet Volume 12.3 fL (9.4-12.4); Nucleated RBC # (auto) 0.02 K/uL (0-0.12); Nucleated RBC % (auto) 0.8 %; Platelet Count 42 K/uL (130-400); RDW Coefficient of Variation 17.1 % (11.5-14.5); RDW Standard Deviation 61.5 fL (36.4-46.3); Red Blood Count 3.15 M/uL (4.70-6.10); White Blood Count 2.53 K/ul (4.8-10.8)
[2022-10-08 07:09] LABS: Albumin Globulin Ratio 1.5 (0.9-2); Albumin Level 3.8 gm/dl (3.4-5.0); BUN Creatinine Ratio 12.1 (10-20); Bilirubin,Total 2.4 mg/dl (0.2-1.0); Creatinine Clr Calc Pharmacy 136.3 ml/min; Est GFR (Non-African American) 109.6 ml/min; Globulin 2.6 gm/dl (2.5-4.0); Magnesium 1.5 mg/dl (1.7-2.4); Potassium 3.4 mmol/L (3.5-5.1); Total Protein 6.4 gm/dl (6.0-8.3)
[2022-10-08] MEDS ORDERED: POTASSIUM CHLORIDE CRTAB 20 MEQ TABCR PO ONE (08:18)
[2022-10-08] MEDS ORDERED: MAGNESIUM SULFATE / D5W 1 GM/100 ML BAG IV ONE (08:18)
[2022-10-08] MEDS: PANTOprazole 40 MG TAB PO SCH (08:33)
[2022-10-08] MEDS: THIAMINE HCL 100 MG TAB PO SCH (08:33)
[2022-10-08] MEDS: FOLIC ACID 1 MG TAB PO SCH (08:33)
[2022-10-08] MEDS: SUCRALFATE 1 GM/10 ML UDC PO SCH ×4 (08:33→21:46)
[2022-10-08] MEDS: METOPROLOL TARTRATE 25 MG TAB PO SCH ×2 (08:34→21:45)
[2022-10-08] MEDS: MULTIVITAMIN TAB PO SCH (08:35)
[2022-10-08] MEDS: LORazepam 0.5 MG TAB PO PRN ×2 (11:40→19:49)
--- NOTE | 2022-10-08 13:29 | Hospitalist Progress Note ---
Date of Service October 08, 2022 Assessment & Plan (1) Acute hypoxemic respiratory failure: Plan: Hypoxia Transient likely secondary to IV sedative meds given in ED --CXR:No active disease in the chest. Saturating well currently on room air Recurrent Upper GI bleed: Likely due to esophageal ulcers, varices --CT ABD:Severe hepatic steatosis. --S/P EGD:Esophageal ulcers with no bleeding and no stigmata of recent bleeding. Grade I esophageal varices with no bleeding and no stigmata of recent bleeding. Several healing ulcers were noted consistent with recent esophageal band ligation. Portal hypertensive gastropathy. - Normal examined duodenum. No specimens collected. -- Monitor H&H and transfuse PRBCs as needed Appreciate GI input Continue Protonix Continue Carafate Avoid NSAIDs, anticoagulation Needs repeat EGD in 6 to 8 weeks Consider to add nadolol as able Will advance diet tomorrow Hemoglobin stable Alcohol withdrawal Alcohol use disorder Hepatic steatosis Monitor LFTs CT abdomen as above Avoid hepatotoxic agents as able Continue gabapentin protocol Ativan as needed Continue thiamine, folic acid Monitor for withdrawal Continue current management Pancytopenia Likely secondary to alcohol abuse Monitor CBC HTN Obtain old records BP elevated likely due to alcohol withdrawal Resume home medications as able Clonidine as needed Monitor Mood disorder--not on any maintenance medications past tobacco abuse DVT Px: SCDs Re: GI bleed, thrombocytopenia CODE STATUS Full code Admission and Anticipated Discharge Date Admission Date: October 06, 2022 Subjective Patient is seen and examined at bedside Feels less anxious today Still has some generalized tremor Blood pressure elevated this a.m. Mental status seem to be improving Denies any chest pain, dyspnea, dizziness, nausea, vomiting, abdominal pain Denies any bleeding issues Review of Systems Review of Systems: All systems reviewed & are unremarkable except as noted in Subjective Physical Exam Physical Exam: Physical Exam: Vitals signs as noted above General Appearance:Moderately built and nourished, no apparent distress Head: normocephalic, Atraumatic Eyes: normal inspection, EOMI Neck: supple, Trachea midline Respiratory/Chest: Normal breath sounds, CTA, No accessory muscle use Cardiovascular: S1, S2, No murmur Abdomen/GI:Soft, Non tender, Bowel sounds present Extremities/Musculoskeletal:normal inspection, no edema Neurologic/Psych:AAOX2, grossly no focal neurological deficits, +Tremor Skin: normal color, warm Results & Data Results & Data Vital Signs (Past 12 Hours) Vital Signs Temp Pulse Resp BP Pulse Ox O2 Del Method 10/08/22 11:55 36.5 C 73 18 146/102 H 97 Room Air 10/08/22 08:01 Room Air 10/08/22 07:54 37.0 C 78 18 144/105 H 96 Room Air 10/08/22 05:20 127/92 10/08/22 02:57 36.9 C 82 16 159/119 H 97 Room Air Laboratory Results Short CBC 10/08/22 Range/Units 06:17 WBC 2.53 L (4.8-10.8) K/ul Hgb 11.1 L (14.0-18.0) g/dl Hct 31.0 L (42.0-52.0) % Plt Count 42 L (130-400) K/uL BMP 10/08/22 06:17 Sodium 136 Potassium 3.4 L Chloride 95 L Carbon Dioxide 29 BUN 8 Creatinine 0.66 Glucose 94 Calcium 9.0 Liver Function 10/08/22 Range/Units 06:17 Total Bilirubin 2.4 H (0.2-1.0) mg/dl AST 133 H (13-39) U/L ALT 79 H (7-52) U/L Alkaline Phosphatase 72 (34-104) U/L Albumin 3.8 (3.4-5.0) gm/dl
[2022-10-08] MEDS: lisinopril 5 MG TAB PO SCH (21:45)
[2022-10-09] MEDS: SUCRALFATE 1 GM/10 ML UDC PO SCH ×4 (07:34→20:01)
[2022-10-09 07:43] LABS: Hematocrit (blood only) 33.8 % (42.0-52.0); Hemoglobin 11.8 g/dl (14.0-18.0); Mean Corpuscular Hemoglobin 34.9 pg (25.0-34.0); Mean Corpuscular Hgb Conc 34.9 g/dL (32.0-36.0); Mean Platelet Volume 12.9 fL (9.4-12.4); Platelet Count 54 K/uL (130-400); RDW Coefficient of Variation 16.8 % (11.5-14.5); RDW Standard Deviation 62.1 fL (36.4-46.3); Red Blood Count 3.38 M/uL (4.70-6.10)
[2022-10-09] MEDS: FOLIC ACID 1 MG TAB PO SCH (07:55)
[2022-10-09] MEDS: MULTIVITAMIN TAB PO SCH (07:55)
[2022-10-09] MEDS: PANTOprazole 40 MG TAB PO SCH (07:55)
[2022-10-09] MEDS: METOPROLOL TARTRATE 25 MG TAB PO SCH ×2 (07:56→20:00)
[2022-10-09] MEDS: THIAMINE HCL 100 MG TAB PO SCH (07:56)
[2022-10-09 08:49] LABS: Bilirubin,Total 1.7 mg/dl (0.2-1.0); Calcium 9.8 mg/dl (8.6-10.3); Magnesium 1.7 mg/dl (1.7-2.4); Potassium 3.6 mmol/L (3.5-5.1)
[2022-10-09 08:55] LABS: Albumin Globulin Ratio 1.4 (0.9-2); BUN Creatinine Ratio 10.6 (10-20); Creatinine Clr Calc Pharmacy 136.3 ml/min; Est GFR (Non-African American) 109.6 ml/min; Globulin 2.8 gm/dl (2.5-4.0); Total Protein 6.8 gm/dl (6.0-8.3)
[2022-10-09] MEDS: GABAPENTIN 600 MG TAB PO SCH (11:33)
[2022-10-09 12:27] LABS: 7-Aminoclonaz, Confirm NEGATIVE ng/mL (<25); Hydro-Alp Ur, GC/MS NEGATIVE ng/mL (<25); Hydroxyethylflurazepam, Conf NEGATIVE ng/mL (<50); Hydroxymidazolam Ur, GC/MS NEGATIVE ng/mL (<50); Hydroxytriazolam NEGATIVE ng/mL (<50); Lorazepam, Ur GC/MS 157 ng/mL (<50); Marijuana Quant, GCMS Urine 609 ng/mL (<5); Nordiazepam, Confirm NEGATIVE ng/mL (<50); Oxazepam Ur, GC/MS NEGATIVE ng/mL (<50); Temazepam, Confirm 101 ng/mL (<50)
[2022-10-09] MEDS: LORazepam 2 MG/1 ML VIAL IV PRN (12:36)
[2022-10-09] MEDS: cloNIDine HCL 0.1 MG TAB PO PRN (13:27)
--- NOTE | 2022-10-09 14:29 | Hospitalist Progress Note ---
Date of Service October 09, 2022 Assessment & Plan (1) Acute hypoxemic respiratory failure: Plan: Hypoxia Transient likely secondary to IV sedative meds given in ED --CXR:No active disease in the chest. Saturating well currently on room air Recurrent Upper GI bleed: Likely due to esophageal ulcers, varices --CT ABD:Severe hepatic steatosis. --S/P EGD:Esophageal ulcers with no bleeding and no stigmata of recent bleeding. Grade I esophageal varices with no bleeding and no stigmata of recent bleeding. Several healing ulcers were noted consistent with recent esophageal band ligation. Portal hypertensive gastropathy. - Normal examined duodenum. No specimens collected. -- Monitor H&H and transfuse PRBCs as needed Appreciate GI input Continue Protonix Continue Carafate Avoid NSAIDs, anticoagulation Needs repeat EGD in 6 to 8 weeks Consider to add nadolol as able Advance diet today Hb stable Thrombocytopenia slightly better today Alcohol withdrawal Alcohol use disorder Hepatic steatosis Monitor LFTs CT abdomen as above Avoid hepatotoxic agents as able Continue gabapentin protocol Ativan as needed Continue thiamine, folic acid Monitor for withdrawal Slowly improving Pancytopenia Likely secondary to alcohol abuse Monitor CBC HTN Obtain old records BP elevated likely due to alcohol withdrawal Continue lisinopril, metoprolol Clonidine as needed Monitor Mood disorder--not on any maintenance medications past tobacco abuse DVT Px: SCDs Re: GI bleed, thrombocytopenia CODE STATUS Full code Admission and Anticipated Discharge Date Admission Date: October 06, 2022 Subjective Patient is seen and examined at bedside States feeling better today Anxiety, tremor continues to improve BP remains elevated this morning No new complaints Denies any bleeding issues Denies any chest pain, dyspnea, dizziness, nausea, vomiting, abdominal pain Review of Systems Review of Systems: All systems reviewed & are unremarkable except as noted in Subjective Physical Exam Physical Exam: Physical Exam: Vitals signs as noted above General Appearance:Moderately built and nourished, no apparent distress Head: normocephalic, Atraumatic Eyes: normal inspection, EOMI Neck: supple, Trachea midline Respiratory/Chest: Normal breath sounds, CTA, No accessory muscle use Cardiovascular: S1, S2, No murmur Abdomen/GI:Soft, Non tender, Bowel sounds present Extremities/Musculoskeletal:normal inspection, no edema Neurologic/Psych:AAOX2, grossly no focal neurological deficits, +Tremor Skin: normal color, warm Results & Data Results & Data Vital Signs (Past 12 Hours) Vital Signs Temp Pulse Resp BP Pulse Ox O2 Del Method 10/09/22 10:56 36.6 C 70 18 152/103 H 99 Room Air 10/09/22 08:00 Room Air 10/09/22 07:11 37.0 C 63 18 162/112 H 98 Room Air 10/09/22 03:30 36.6 C 20 L 18 129/97 95 Room Air Laboratory Results Short CBC 10/09/22 Range/Units 07:10 WBC 2.40 L (4.8-10.8) K/ul Hgb 11.8 L (14.0-18.0) g/dl Hct 33.8 L (42.0-52.0) % Plt Count 54 L (130-400) K/uL BMP 10/09/22 07:10 Sodium 137 Potassium 3.6 Chloride 100 Carbon Dioxide 29 BUN 7 Creatinine 0.66 Glucose 86 Calcium 9.8 Liver Function 10/09/22 Range/Units 07:10 Total Bilirubin 1.7 H (0.2-1.0) mg/dl AST 109 H (13-39) U/L ALT 71 H (7-52) U/L Alkaline Phosphatase 78 (34-104) U/L Albumin 4.0 (3.4-5.0) gm/dl
[2022-10-09] MEDS ORDERED: lisinopril 10 MG TAB PO SCH (21:00)
[2022-10-09] MEDS ORDERED: LACTATED RINGER'S 1,000 ML IV ONE (21:29)
--- NOTE | 2022-10-09 21:30 | Communication Note ---
Date of Service: October 09, 2022 Made aware by RN of SBP 80s. Patient lightheaded. Serum creatinine 0.97 from 0.66 this AM. AP Hypotension Kidney dysfunction IVF Hold lisinopril for now.
[2022-10-09 22:05] LABS: Hematocrit (blood only) 32.4 % (42.0-52.0); Hemoglobin 11.5 g/dl (14.0-18.0)
[2022-10-09 22:25] LABS: BUN Creatinine Ratio 12.4 (10-20); Calcium 9.8 mg/dl (8.6-10.3); Creatinine Clr Calc Pharmacy 92.7 ml/min; Est GFR (African American) 102.2 ml/min; Est GFR (Non-African American) 88.1 ml/min; Magnesium 1.5 mg/dl (1.7-2.4); Potassium 4.1 mmol/L (3.5-5.1)
[2022-10-09] MEDS: LORazepam 0.5 MG TAB PO PRN (23:26)
[2022-10-10] MEDS: MAGNESIUM SULFATE / D5W 1 GM/100 ML BAG IV SCH ×2 (02:57→04:38)
[2022-10-10 07:33] LABS: Hematocrit (blood only) 30.6 % (42.0-52.0); Hemoglobin 10.7 g/dl (14.0-18.0); Mean Platelet Volume 12.4 fL (9.4-12.4); Platelet Count 59 K/uL (130-400); RDW Coefficient of Variation 16.6 % (11.5-14.5); RDW Standard Deviation 61.1 fL (36.4-46.3); Red Blood Count 3.06 M/uL (4.70-6.10); White Blood Count 2.59 K/ul (4.8-10.8)
[2022-10-10 07:39] LABS: BUN Creatinine Ratio 14.3 (10-20); Calcium 9.3 mg/dl (8.6-10.3); Creatinine Clr Calc Pharmacy 142.8 ml/min; Est GFR (African American) 129.5 ml/min; Est GFR (Non-African American) 111.7 ml/min; Potassium 3.5 mmol/L (3.5-5.1)
[2022-10-10] MEDS: METOPROLOL TARTRATE 25 MG TAB PO SCH (08:56)
[2022-10-10] MEDS: THIAMINE HCL 100 MG TAB PO SCH (08:56)
[2022-10-10] MEDS: SUCRALFATE 1 GM/10 ML UDC PO SCH ×2 (08:57→12:05)
[2022-10-10] MEDS: FOLIC ACID 1 MG TAB PO SCH (08:57)
[2022-10-10] MEDS: MULTIVITAMIN TAB PO SCH (08:57)
[2022-10-10] MEDS: PANTOprazole 40 MG TAB PO SCH (08:57)
[2022-10-10] MEDS: LORazepam 0.5 MG TAB PO PRN (09:00)
[2022-10-10] MEDS ORDERED: GABAPENTIN 600 MG TAB PO SCH (12:00)
[2022-10-10] MEDS ORDERED: POLYETHYLENE (MIRALAX) 17 GM PACK PO PRN (12:50)
[2022-10-10] MEDS ORDERED: DOCUSATE SODIUM 100 MG CAP PO PRN (12:50)
--- NOTE | 2022-10-10 13:32 | Hospitalist Progress Note ---
Date of Service October 10, 2022 Assessment & Plan (1) Acute hypoxemic respiratory failure: Plan: Hypoxia Transient likely secondary to IV sedative meds given in ED --CXR:No active disease in the chest. Saturating well currently on room air Recurrent Upper GI bleed: Likely due to esophageal ulcers, varices --CT ABD:Severe hepatic steatosis. --S/P EGD:Esophageal ulcers with no bleeding and no stigmata of recent bleeding. Grade I esophageal varices with no bleeding and no stigmata of recent bleeding. Several healing ulcers were noted consistent with recent esophageal band ligation. Portal hypertensive gastropathy. - Normal examined duodenum. No specimens collected. -- Monitor H&H and transfuse PRBCs as needed Appreciate GI input Continue Protonix Continue Carafate Avoid NSAIDs, anticoagulation Needs repeat EGD in 6 to 8 weeks Consider to add nadolol as able Tolerated regular Hb stable No recurrence of bleeding Thrombocytopenia improving Plan to discharge to drug rehab facility today Needs follow-up with GI upon discharge in 6 to 8 weeks with repeat EGD Alcohol withdrawal Alcohol use disorder Hepatic steatosis Monitor LFTs CT abdomen as above Avoid hepatotoxic agents as able Continue gabapentin protocol Ativan as needed Continue thiamine, folic acid Monitor for withdrawal No withdrawal symptoms currently Pancytopenia Likely secondary to alcohol abuse Monitor CBC HTN Obtain old records BP elevated likely due to alcohol withdrawal Continue metoprolol Lisinopril discontinued Clonidine as needed Monitor Mood disorder--not on any maintenance medications past tobacco abuse DVT Px: SCDs Re: GI bleed, thrombocytopenia CODE STATUS Full code Disposition Drug rehab Admission and Anticipated Discharge Date Admission Date: October 06, 2022 Subjective Patient is seen and examined at bedside BP was transiently low overnight associated with dizziness BP improved with IV fluids, and dizziness resolved Offers no new complaints today Anxiety, tremor much improved Plan to discharge to drug rehab facility today Denies any chest pain, dyspnea, dizziness, nausea, vomiting, abdominal pain Review of Systems Review of Systems: All systems reviewed & are unremarkable except as noted in Subjective Physical Exam Physical Exam: Physical Exam: Vitals signs as noted above General Appearance:Moderately built and nourished, no apparent distress Head: normocephalic, Atraumatic Eyes: normal inspection, EOMI Neck: supple, Trachea midline Respiratory/Chest: Normal breath sounds, CTA, No accessory muscle use Cardiovascular: S1, S2, No murmur Abdomen/GI:Soft, Non tender, Bowel sounds present Extremities/Musculoskeletal:normal inspection, no edema Neurologic/Psych:AAOX2, grossly no focal neurological deficits, +Tremor Skin: normal color, warm Results & Data Results & Data Vital Signs (Past 12 Hours) Vital Signs Temp Pulse Pulse Pulse Resp BP Pulse Ox 10/10/22 13:26 37.0 C 108 H 70 18 122/90 97 10/10/22 11:00 37.0 C 70 18 122/90 97 10/10/22 07:00 36.7 C 83 17 115/83 98 10/10/22 08:24 79 10/10/22 03:00 37.0 C 68 18 136/89 98 O2 Del Method 10/10/22 13:26 10/10/22 11:00 Room Air 10/10/22 07:00 Room Air 10/10/22 08:24 10/10/22 03:00 Room Air Laboratory Results Short CBC 10/09/22 10/10/22 Range/Units 21:50 06:50 WBC 2.59 L (4.8-10.8) K/ul Hgb 11.5 L 10.7 L (14.0-18.0) g/dl Hct 32.4 L 30.6 L (42.0-52.0) % Plt Count 59 L (130-400) K/uL BMP 10/09/22 10/10/22 21:50 06:50 Sodium 136 137 Potassium 4.1 3.5 Chloride 102 103 Carbon Dioxide 26 27 BUN 12 9 Creatinine 0.97 D 0.63 D Glucose 97 96 Calcium 9.8 9.3
--- NOTE | 2022-10-10 13:39 | Discharge Summary ---
Date of Service October 10, 2022 Admission HPI Per Admitting Provider History obtained from patient and records. Medical history significant for HTN, GERD, recent GI bleed, mood disorder, alcohol abuse, past tobacco abuse. Patient is a resident of [place], [place] who was supposed to check in at the local [facility] for voluntary EtOH rehab today. Recent confinement 2 months ago at [facility] for GI bleed and alcohol withdrawal. No prior history of alcohol withdrawal seizures/intubation for alcohol withdrawal. Recalls upper endoscopic procedure being done with unrecalled findings. 3 days ago, patient noted achy lower abdominal pain. No constipation/diarrhea symptoms. Subsequent nausea, dark emesis and hiccuping which patient attributes to decreased EtOH intake. Patient denies headache, chest pain, SOB, cough symptoms. Patient noted to be intoxicated upon arrival at the addiction facility today. Blood alcohol levels noted to be very high. Patient directed to ER for evaluation. Coffee-ground emesis noted to be heme positive. O2 sats 87 on room air post IV Ativan administration at the ER. Medical History as above Surgical History : None Family History : Alcoholism Personal/Social history : Past tobacco abuse, ongoing alcohol abuse, prior work as a pharmaceutical rep Admission Exam Per Admitting Provider GENERAL: uncomfortable, tremulous, episodic hiccuping, no respiratory distress SKIN: Pallor, warm HEENT: Pale palpebral conjunctivae, no ptosis, dry buccal mucosa NECK : Supple, no tenderness CHEST : CTA, no tenderness HEART : RRR, no obvious murmurs ABDOMEN: Some distention, central abdominal tenderness EXTREMITIES : No LE swelling/tenderness, no other conspicuous deformities noted NEUROLOGIC : Coherent, no facial asymmetry,, tremulous, no other gross focality Principal Diagnosis Alcohol withdrawal Upper GI bleed Hypoxia Pancytopenia Discharge Data Allergies Allergy/AdvReac Type Severity Reaction Status Date / Time No Known Allergies Allergy Verified 10/06/22 23:31 Consultations 10/06/22 20:31 ED Decision to Admit Stat 10/06/22 21:59 Consult Health Information Management Routine 10/07/22 00:15 Consult Gastroenterology Routine Procedures Performed Operation Date: 10/07/22 16:30 Actual Procedures p Esophagogastroduodenoscopy - Malena Donnelly DO Ordered Studies 10/06/22 21:22 CT Abd and Pelvis [CT abd pelvis IV con only] Stat Laboratory Results WBC 2.59 K/ul (4.8-10.8) L 10/10/22 06:50 RBC 3.06 M/uL (4.70-6.10) L 10/10/22 06:50 Hgb 10.7 g/dl (14.0-18.0) L 10/10/22 06:50 Hct 30.6 % (42.0-52.0) L 10/10/22 06:50 MCV 100.0 fL (80.0-100.0) 10/10/22 06:50 MCH 35.0 pg (25.0-34.0) H 10/10/22 06:50 MCHC 35.0 g/dL (32.0-36.0) 10/10/22 06:50 RDW Std Deviation 61.1 fL (36.4-46.3) H 10/10/22 06:50 RDW Coeff of Tj 16.6 % (11.5-14.5) H 10/10/22 06:50 Plt Count 59 K/uL (130-400) L 10/10/22 06:50 MPV 12.4 fL (9.4-12.4) 10/10/22 06:50 Immature Gran % (Auto) 1.1 % 10/07/22 05:38 Neut % (Auto) 56.8 % 10/07/22 05:38 Lymph % (Auto) 27.6 % 10/07/22 05:38 [place] % (Auto) 12.0 % 10/07/22 05:38 Eos % (Auto) 0.7 % 10/07/22 05:38 Baso % (Auto) 1.8 % 10/07/22 05:38 Neut # (Auto) 1.61 K/uL (1.40-6.50) 10/07/22 05:38 Lymph # (Auto) 0.78 K/uL (1.2-3.4) L 10/07/22 05:38 [place] # (Auto) 0.34 K/uL (0.11-0.59) 10/07/22 05:38 Eos # (Auto) 0.02 K/uL (0-0.50) 10/07/22 05:38 Baso # (Auto) 0.05 K/uL (0-0.2) 10/07/22 05:38 Immature Gran # (Auto) 0.03 K/uL (0.01-0.20) 10/07/22 05:38 Absolute Nucleated RBC 0.02 K/uL (0-0.12) 10/08/22 06:17 Nucleated RBC % (auto) 0.8 % 10/08/22 06:17 Neutrophils % (Manual) 42 % 10/06/22 19:15 Lymphocytes % (Manual) 25 % 10/06/22 19:15 Monocytes % (Manual) 14 % 10/06/22 19:15 Basophils % (Manual) 5 % 10/06/22 19:15 Neutrophils # (Manual) 0.89 K/uL (1.40-6.50) L 10/06/22 19:15 Total Absolute Neuts 0.89 K/uL (1.4-6.5) L* 10/06/22 19:15 Lymphocytes # (Manual) 0.53 K/uL (1.2-3.4) L 10/06/22 19:15 Total Abs Lymphocytes 0.82 K/uL (1.2-3.4) L 10/06/22 19:15 Monocytes # (Manual) 0.30 K/uL (0.11-0.59) 10/06/22 19:15 Basophils # (Manual) 0.11 K/uL (0-0.2) 10/06/22 19:15 Large Granular Lymphs 14 % 10/06/22 19:15 # Lrg Granular Lymphs 0.30 K/uL 10/06/22 19:15 PT 10.7 Seconds (9.0-12.0) 10/06/22 19:16 INR 1.0 (0.9-1.1) 10/06/22 19:16 ABG pH 7.31 (7.35-7.45) L 10/06/22 22:31 ABG pCO2 33 mmHg (35-46) L 10/06/22 22:31 ABG pO2 127 mmHg (80-95) H 10/06/22 22:31 ABG HCO3 17 mmol/L (19-24) L 10/06/22 22:31 ABG O2 Saturation 99.4 % (90-95) H 10/06/22 22:31 ABG Base Excess -8.6 mEq/L (-9-1.8) 10/06/22 22:31 Kush Test Pos (Pos) 10/06/22 22:31 Oxygen Given 2 10/06/22 22:31 Sodium 137 mmol/L (136-145) 10/10/22 06:50 Potassium 3.5 mmol/L (3.5-5.1) 10/10/22 06:50 Chloride 103 mmol/L (98-107) 10/10/22 06:50 Carbon Dioxide 27 mmol/L (21-32) 10/10/22 06:50 Anion Gap 7 (3-11) 10/10/22 06:50 BUN 9 mg/dl (6-23) 10/10/22 06:50 Creatinine 0.63 mg/dl (0.6-1.4) D 10/10/22 06:50 Est Cr Clr Drug Dosing 142.8 ml/min 10/10/22 06:50 Est GFR ( Amer) 129.5 ml/min 10/10/22 06:50 Est GFR (Non-Af Amer) 111.7 ml/min 10/10/22 06:50 BUN/Creatinine Ratio 14.3 (10-20) 10/10/22 06:50 Glucose 96 mg/dl (70-99(Fasting)) 10/10/22 06:50 POC Glucose 90 mg/dl (70-99) 10/07/22 08:07 Lactate 2.0 mmol/L (0.4-2.0) 10/09/22 21:50 Calcium 9.3 mg/dl (8.6-10.3) 10/10/22 06:50 Phosphorus 5.5 mg/dl (2.5-4.9) H 10/06/22 19:15 Magnesium 1.5 mg/dl (1.7-2.4) L 10/09/22 21:50 Total Bilirubin 1.7 mg/dl (0.2-1.0) H 10/09/22 07:10 AST 109 U/L (13-39) H 10/09/22 07:10 ALT 71 U/L (7-52) H 10/09/22 07:10 Alkaline Phosphatase 78 U/L (34-104) 10/09/22 07:10 Total Protein 6.8 gm/dl (6.0-8.3) 10/09/22 07:10 Albumin 4.0 gm/dl (3.4-5.0) 10/09/22 07:10 Globulin 2.8 gm/dl (2.5-4.0) 10/09/22 07:10 Albumin/Globulin Ratio 1.4 (0.9-2) 10/09/22 07:10 Lipase 69 U/L (11-82) 10/06/22 19:15 Urine Color Dark Yellow 10/07/22 Unknown Urine Appearance Clear (Clear) 10/07/22 Unknown Urine pH 5.5 (4.5-7.5) 10/07/22 Unknown Ur Specific Melba > 1.045 (1.000-1.030) H 10/07/22 Unknown Urine Protein 2+ (Negative) H 10/07/22 Unknown Urine Glucose (UA) Negative (Negative) 10/07/22 Unknown Urine Ketones 3+ (Negative) H 10/07/22 Unknown Urine Blood Negative (Negative) 10/07/22 Unknown Urine Nitrite Negative (Negative) 10/07/22 Unknown Urine Bilirubin 1+ (Negative) H 10/07/22 Unknown Urine Urobilinogen Negative (Negative) 10/07/22 Unknown Ur Leukocyte Esterase Negative (Negative) 10/07/22 Unknown Urine WBC (Auto) 0 /hpf (0-5) 10/07/22 Unknown Urine RBC (Auto) 0-4 /hpf (0-4) 10/07/22 Unknown U Hyaline Cast (Auto) 1-5 /lpf (0-5) 10/07/22 Unknown U Epithel Cells (Auto) 5-10 /lpf (0-5) H 10/07/22 Unknown Urine Bacteria (Auto) Negative (Negative) 10/07/22 Unknown Urine Opiates Screen Neg (Neg) 10/07/22 Unknown Ur Methadone, Qual Neg (Neg) 10/07/22 Unknown Urine Barbiturates Neg (Neg) 10/07/22 Unknown Ur Phencyclidine (PCP) Neg (Neg) 10/07/22 Unknown U Amphetamin/Meth Scrn Neg (Neg) 10/07/22 Unknown MDMA (Ecstasy) Screen Neg (Neg) 10/07/22 Unknown U OH-Alprazolam Confrm NEGATIVE ng/mL (<25) 10/07/22 Unknown U Benzodiazepines Scrn Pos (Neg) H 10/07/22 Unknown 7-Amino Clonazepam NEGATIVE ng/mL (<25) 10/07/22 Unknown Ur Nordiazepam Confirm NEGATIVE ng/mL (<50) 10/07/22 Unknown U OH-ethylflurazepam NEGATIVE ng/mL (<50) 10/07/22 Unknown U Lorazepam Cnf GC/MS 157 ng/mL (<50) H 10/07/22 Unknown U Oxazepam Confm GC/MS NEGATIVE ng/mL (<50) 10/07/22 Unknown Ur Temazepam Confirm 101 ng/mL (<50) H 10/07/22 Unknown U OH-Triazolam Confirm NEGATIVE ng/mL (<50) 10/07/22 Unknown U OH-Midazolam Confirm NEGATIVE ng/mL (<50) 10/07/22 Unknown Ur Cocaine Metabolite Neg (Neg) 10/07/22 Unknown U Marijuana (THC) Screen Pos (Neg) H 10/07/22 Unknown U Marijuana THC Carboxy 609 ng/mL (<5) H 10/07/22 Unknown Drug Screen Comment SEE NOTE 10/07/22 Unknown Ethyl Alcohol mg/dL 393.5 mg/dl (<10.0) H 10/06/22 19:15 Blood Type O Positive 10/06/22 22:31 Antibody Screen NEGATIVE 10/06/22 22:31 Impressions Abdomen/Pelvis CT 10/06/22 21:22 Exam(s): CT ABDOMEN + PELVIS With Contrast IV Amt: 93 ML OPTIRAY 320 EXAM: CT Abdomen and Pelvis With Intravenous Contrast CLINICAL HISTORY: Reason for exam: abd pain, ugib. TECHNIQUE: Axial computed tomography images of the abdomen and pelvis with intravenous contrast. CTDI is 24.25 mGy and DLP is 1353.05 mGy-cm. Automated exposure control was utilized for the study. A dose lowering technique was utilized adhering to the principles of ALARA. CONTRAST: Patient received 93 ML OPTIRAY 320 of IV contrast COMPARISON: No relevant prior studies available. FINDINGS: ABDOMEN: Liver: Severe hepatic steatosis. Gallbladder and bile ducts: Unremarkable. Pancreas: Unremarkable. Spleen: Unremarkable. Adrenals: Unremarkable. Kidneys and ureters: Unremarkable. No obstructing stones. No hydronephrosis. Stomach and bowel: Unremarkable. PELVIS: Appendix: No findings to suggest acute appendicitis. Bladder: Unremarkable. Reproductive: Unremarkable as visualized. ABDOMEN and PELVIS: Intraperitoneal space: Unremarkable. No free air. No significant fluid collection. Bones/joints: No acute fracture. Soft tissues: Unremarkable. Vasculature: Unremarkable. Lymph nodes: Unremarkable. IMPRESSION: Severe hepatic steatosis. Electronically signed by: Redd Fitch MD 10/07/22 00:14 AM Chest X-Ray 10/06/22 21:22 SINGLE VIEW CHEST CLINICAL HISTORY: Hypoxia. FINDINGS: An AP, portable, upright chest radiograph is obtained. No prior studies are available for comparison at the time of dictation. The cardiomediastinal silhouette is top normal for projection. The lungs and pleural spaces are clear noting mild bibasilar atelectasis. No pneumothorax is seen. The bony thorax is grossly intact. Degenerative change is noted in the spine. IMPRESSION: No active disease in the chest. ACT 112: Negative or not required by law. Electronically signed by: Joshua Hodges M.D. 10/07/2022 7:27 AM Hospital Course (1) Acute hypoxemic respiratory failure: Hypoxia Transient likely secondary to IV sedative meds given in ED --CXR:No active disease in the chest. Saturating well currently on room air Recurrent Upper GI bleed: Likely due to esophageal ulcers, varices --CT ABD:Severe hepatic steatosis. --S/P EGD:Esophageal ulcers with no bleeding and no stigmata of recent bleeding. Grade I esophageal varices with no bleeding and no stigmata of recent bleeding. Several healing ulcers were noted consistent with recent esophageal band ligation. Portal hypertensive gastropathy. - Normal examined duodenum. No specimens collected. -- Monitor H&H and transfuse PRBCs as needed Appreciate GI input Continue Protonix Continue Carafate Avoid NSAIDs, anticoagulation Needs repeat EGD in 6 to 8 weeks Consider to add nadolol as able Tolerated regular Hb stable No recurrence of bleeding Thrombocytopenia improving Plan to discharge to drug rehab facility today Needs follow-up with GI upon discharge in 6 to 8 weeks with repeat EGD Alcohol withdrawal Alcohol use disorder Hepatic steatosis Monitor LFTs CT abdomen as above Avoid hepatotoxic agents as able Continue gabapentin protocol Ativan as needed Continue thiamine, folic acid Monitor for withdrawal No withdrawal symptoms currently Pancytopenia Likely secondary to alcohol abuse Monitor CBC HTN Obtain old records BP elevated likely due to alcohol withdrawal Continue metoprolol Lisinopril discontinued Clonidine as needed Monitor Mood disorder--not on any maintenance medications past tobacco abuse DVT Px: SCDs Re: GI bleed, thrombocytopenia CODE STATUS Full code Disposition Drug rehab Total Time Total Time Spent Total Time Spent (In Minutes): 56 minutes Discharge Plan Discharge Items Patient Disposition: Drug & Alcohol Rehab Reason For Visit: ANEMIA, GI BLEED, ETOH WITHDRAWAL Discharge Diagnosis: Alcohol withdrawal Upper GI bleed Hypoxia Pancytopenia Activity: Per Instructions section Exercise/Sports: Wait until after follow-up appointment Non-emergency contact: Primary Care Provider Call non-emergency contact if: you have any medication questions, your symptoms worsen, your pain is concerning for you and you have a fever Follow-up/Referrals: PCP,NO [Primary Care Provider] - Diet: Regular Addtl Attending Provider Instructions: Follow-up with your primary care physician in 1 week Follow-up with your able bodied seaman Dr. Donnelly in 6 to 8 weeks for repeat EGD as advised. Seek immediate medical attention if your symptoms reoccur or worsen Please take all medications as instructed on discharge list below. Please call if you have any questions or problems. You can reach a [facility] hospitalist on duty at [facility] 24 hours a day by calling [phone] Pending Studies at Discharge: No Stand-Alone Forms: My [facility] Skilled Items Patient informed of condition?: Yes DNR: No Discharge Level of Care: Other Communicable Disease: No Discharge Prognosis: Stable Lines: None Urinary Catheter: No Medications and DC Order Prescriptions: New docusate sodium 100 mg Capsule 100 mg PO BID PRN (Reason: constipation) Qty: 30 0RF thiamine HCl (vitamin B1) 100 mg Tablet 100 mg PO QAM Qty: 30 0RF pantoprazole 40 mg Tablet,Delayed Release (Dr/Ec) 40 mg PO QAM Qty: 30 1RF sucralfate [Carafate] 1 gram tablet 1 g PO ACHS 10 Days Qty: 40 0RF Continued multivitamin Tablet 1 tab PO DAILY folic acid 1 mg Tablet 0 mg PO DAILY Rx Instructions: PT UNSURE OF STRENGTH, UNABLE TO VERIFY metoprolol succinate 25 mg Tablet Extended Release 24 Hr 0 mg PO DAILY Rx Instructions: PT UNSURE IS SUCCINATE OR TARTRATE, OR STRENGTH, UNABLE TO VERIFY. Discontinued lisinopril 2.5 mg Tablet 0 mg PO DAILY Rx Instructions: PT UNSURE OF STRENGTH, UNABLE TO VERIFY. Discharge Orders: Discharge Order (Routine); Ordered 10/10/22 Ordered By: Elijah Sims Admission Data Admit Date/Time: 10/06/22 21:32 Attending Provider: Elijah Sims Admit Provider: Palmer Agrawal Primary Care Provider: PCP,NO Other Providers: Palmer Agrawal ; Joey Bonilla ; Jah Rosales ; Sarita Sanchez ; Kamilla Robb ; Connie Calderón ; Kacey Alberts ; Aj Karimi ; Ishan Martinez ; Malena Donnelly ; mEilie Allan ; Les Lind ; Julita Ibanez ; Farzana Jaquez ; Gely Reis ; Jane Orosco ; Elaine Ortiz ; Gaurav Solomon ; Dawood Olivo ; Annmarie Bailey ; Chris Colon Jr Other Interventions: Discharge Summary Assessment (RN) Last Done: 10/10/22 13:26
== END 2022-10-10 15:00 | disposition alcohol treatment (31) | DRG 380 ==
LOC: ED 18:01 → 2E 21:32